=== PATIENT | female | born 1935 | race American Indian/Alaskan Native ===

== ENCOUNTER 2017-07-17 10:42 | Outpatient (CLI) | payer MEDICARE ==
--- NOTE | 2017-07-17 21:08 | XRay Report ---
FINAL REPORT PROCEDURE: XR KNEE 4+V LT TECHNIQUE: Five view left knee HISTORY: KNEE PAIN COMPARISON: No prior studies are available for comparison. FINDINGS: Severe degenerative changes left knee primarily medial joint space with endplate sclerotic change in osteophytic eburnation. Retropatellar osteophytic change. Prominent osteophytic eburnation or exostoses in the posterior femoral condylar and tibial areas on lateral view. Small suprapatellar effusion. Soft tissue swelling. IMPRESSION: No definite acute fracture
== END 2017-07-17 10:43 | disposition home or self-care (01) ==
LOC: SPVIMAG 10:42
PROVIDERS: ATTEND Orthopaedic Surgery Sports Medicine
DX: M17.12 Unilateral primary osteoarthritis, left knee (principal)

== ENCOUNTER 2017-08-20 13:19 | Emergency (ER) | payer MEDICARE ==
[2017-08-20] MEDS ORDERED: ZOFRAN IV ONE (14:25)
[2017-08-20] MEDS ORDERED: VALIUM IV ONE (14:26)
[2017-08-20] MEDS ORDERED: ANTIVERT PO ONE (14:26)
[2017-08-20] MEDS ORDERED: NACL 0.9% 1000 ML 1,000 ML ONE (14:29)
--- NOTE | 2017-08-20 14:30 | Emergency Department Report ---
<ZENOBIACASE T - Last Filed: 08/20/17 19:19> ED Dizziness HPI - General Chief Complaint: Nausea/Vomiting/Diarrhea Stated Complaint: N/V AND DIZZINESS Time Seen by Provider: 08/20/17 14:20 - Related Data Previous Rx's Medication Instructions Recorded Last Taken Type Meclizine [Antivert] 25 mg PO TID PRN #30 tablet 08/20/17 Unknown Rx Ondansetron [Zofran Odt] 4 mg PO Q8HR PRN #14 tab.rapdis 08/20/17 Unknown Rx Allergies Allergy/AdvReac Type Severity Reaction Status Date / Time No Known Allergies Allergy Unverified 08/20/17 14:00 ED Review of Systems ROS: Stated complaint: N/V AND DIZZINESS Other details as noted in HPI ED Past Medical Hx - Medications Home Medications: Home Medications Medication Instructions Recorded Confirmed Last Taken Type Meclizine [Antivert] 25 mg PO TID PRN #30 tablet 08/20/17 Unknown Rx Ondansetron [Zofran Odt] 4 mg PO Q8HR PRN #14 tab.rapdis 08/20/17 Unknown Rx ED Course Vital Signs 08/20/17 08/20/17 08/20/17 14:18 14:30 14:45 Temperature Pulse Rate 65 62 Respiratory 16 15 Rate Blood Pressure 136/78 133/74 Blood Pressure [Right] O2 Sat by Pulse 100 100 97 Oximetry 08/20/17 08/20/17 08/20/17 15:00 15:27 15:30 Temperature Pulse Rate 61 Respiratory 16 Rate Blood Pressure 130/72 130/72 125/68 Blood Pressure [Right] O2 Sat by Pulse 95 99 97 Oximetry 08/20/17 08/20/17 08/20/17 15:34 15:45 16:00 Temperature 98.7 F Pulse Rate 68 Respiratory 18 Rate Blood Pressure 122/71 135/75 Blood Pressure 125/68 [Right] O2 Sat by Pulse 99 99 Oximetry 08/20/17 16:15 Temperature Pulse Rate Respiratory Rate Blood Pressure 126/75 Blood Pressure [Right] O2 Sat by Pulse 100 Oximetry ED Medical Decision Making - Lab Data Result diagrams: 08/20/17 15:50 08/20/17 15:50 Critical care attestation.: If time is entered above; I have spent that time in minutes in the direct care of this critically ill patient, excluding procedure time. ED Disposition Clinical Impression: Dizziness, Vertigo Disposition: DC-01 TO HOME OR SELFCARE Is pt being admited?: No Does the pt Need Aspirin: No Condition: Stable Instructions: Vertigo (ED) Prescriptions: Meclizine [Antivert] 25 mg PO TID PRN #30 tablet PRN Reason: Vertigo Ondansetron [Zofran Odt] 4 mg PO Q8HR PRN #14 tab.rapdis PRN Reason: Nausea And Vomiting Referrals: PRIMARY CARE,MD [Primary Care Provider] - 3-5 Days Time of Disposition: 19:20 <BRENT REYNOLDS - Last Filed: 08/23/17 16:16> ED Dizziness HPI - General Source: patient, EMS Mode of arrival: Stretcher Limitations: No Limitations - History of Present Illness Initial Comments: Patient is 81 years old female, history of vertigo a few years back, presented today with dizziness ,nausea ,vomiting started all of a sudden after she finished her breakfast this morning. Patient denied any headache, numbness or tingling sensation, no weakness. No bowel or bladder incontinence. Patient also denied chest pain or shortness of breath. MD Complaint: dizziness -: Sudden Timing: sudden onset Description: "room spinning", nausea History of Same: Yes History of Trauma: No Severity: moderate Improves With: remaining still Worsens With: movement, position Associated Symptoms: denies: ataxia, chest pain, confusion, cough, diaphoresis, fever/chills, loss of appetite, malaise, rash, seizure, shortness of breath, syncope, weakness ED Review of Systems Comment: All other systems reviewed and negative Constitutional: denies: chills, fever ENT: denies: throat pain Respiratory: denies: cough, orthopnea, shortness of breath, SOB with exertion Cardiovascular: denies: chest pain, palpitations, dyspnea on exertion, edema Endocrine: denies: excessive sweating, flushing, intolerance to cold, increased hunger, increased thirst, increased urine, unexplained weight gain Gastrointestinal: nausea, vomiting. denies: abdominal pain, diarrhea, constipation, hematemesis, melena, hematochezia Genitourinary: denies: urgency, dysuria, frequency, hematuria Musculoskeletal: denies: back pain, joint swelling Skin: denies: rash, lesions, change in color Neurological: vertigo. denies: headache, weakness, numbness, paresthesias, confusion, abnormal gait ED Past Medical Hx - Past Medical History Previous Medical History?: Yes Hx Hypertension: Yes - Surgical History Past Surgical History?: Yes Additional Surgical History: Right Knee Replacement - Social History Smoking Status: Never Smoker Substance Use Type: None ED Physical Exam - General Limitations: No Limitations General appearance: alert, in no apparent distress, other (actively vomiting) - Head Head exam: Present: atraumatic, normocephalic, normal inspection - Eye Eye exam: Present: normal appearance, PERRL Pupils: Present: normal accommodation - ENT ENT exam: Present: normal exam, normal orophraynx, mucous membranes moist - Neck Neck exam: Present: normal inspection, full ROM. Absent: tenderness, meningismus, lymphadenopathy - Respiratory Respiratory exam: Present: normal lung sounds bilaterally. Absent: respiratory distress, wheezes, rales, rhonchi, stridor, chest wall tenderness, accessory muscle use, decreased breath sounds, prolonged expiratory - Cardiovascular Cardiovascular Exam: Present: regular rate, normal rhythm, normal heart sounds - GI/Abdominal GI/Abdominal exam: Present: soft, normal bowel sounds. Absent: distended, tenderness, guarding, rebound, rigid, organomegaly, mass, bruit, pulsatile mass , hernia - Extremities Exam Extremities exam: Present: normal inspection, full ROM, normal capillary refill - Back Exam Back exam: Present: normal inspection, full ROM. Absent: tenderness, CVA tenderness (R), CVA tenderness (L), muscle spasm, paraspinal tenderness, vertebral tenderness - Neurological Exam Neurological exam: Present: alert, oriented X3, CN II-XII intact, normal gait, reflexes normal. Absent: motor sensory deficit - Skin Skin exam: Present: warm, intact, normal color ED Course Vital Signs 08/20/17 08/20/17 08/20/17 14:18 14:30 14:45 Temperature Pulse Rate 65 62 Respiratory 16 15 Rate Blood Pressure 136/78 133/74 Blood Pressure [Right] O2 Sat by Pulse 100 100 97 Oximetry 08/20/17 08/20/17 08/20/17 15:00 15:27 15:30 Temperature Pulse Rate 61 Respiratory 16 Rate Blood Pressure 130/72 130/72 125/68 Blood Pressure [Right] O2 Sat by Pulse 95 99 97 Oximetry 08/20/17 08/20/17 08/20/17 15:34 15:45 16:00 Temperature 98.7 F Pulse Rate 68 Respiratory 18 Rate Blood Pressure 122/71 135/75 Blood Pressure 125/68 [Right] O2 Sat by Pulse 99 99 Oximetry 08/20/17 16:15 Temperature Pulse Rate Respiratory Rate Blood Pressure 126/75 Blood Pressure [Right] O2 Sat by Pulse 100 Oximetry ED Medical Decision Making - Lab Data Result diagrams: 08/20/17 15:50 08/20/17 15:50 ED Disposition Is pt being admited?: No
[2017-08-20] MEDS ORDERED: VALIUM PO ONE (15:00)
[2017-08-20 16:24] VITALS: BP 126/75
--- NOTE | 2017-08-20 16:28 | Cat Scan Report ---
FINAL REPORT PROCEDURE: CT HEAD/BRAIN WO CON TECHNIQUE: Computerized tomography of the head was performed without contrast material. HISTORY: DIZZINESS COMPARISON: No prior studies are available for comparison. FINDINGS: Brain: There is no evidence of intracranial hemorrhage. No parenchymal hemorrhage is seen. No mass lesions or mass effect is identified. No abnormal extra-axial fluid collections or masses are seen. Ventricles: The ventricles, sulcal pattern and fissures are prominent consistent with atrophy. Bones: No evidence of acute fracture. Paranasal sinuses: Air-fluid level partially visualized in the left maxillary sinus suggesting acute sinusitis. The entire maxillary sinuses not included on this exam. Visualized portions of the paranasal sinuses otherwise appear clear. Mastoid air cells: clear IMPRESSION: No acute intracranial abnormalities are identified. There is evidence of mild atrophy. Air-fluid level left maxillary sinus partially visualized suggesting acute sinusitis. No other abnormalities are identified.
[2017-08-20 16:30] LABS: Basophils % (Auto) 0.3 % (0.0-1.8); Eosinophils % (Auto) 0.1 % (0.0-4.3); Hematocrit 42.3 % (30.3-42.9); Hemoglobin 13.6 gm/dl (10.1-14.3); Lymphocytes # (Auto) 0.9 K/mm3 (1.2-5.4); Mean Corpuscular HGB Conc 32 % (30-34); Mean Corpuscular Hemoglobin 27 pg (28-32); Mean Corpuscular Volume 82 fl (79-97); Monocytes # (Auto) 0.6 K/mm3 (0.0-0.8); Monocytes % (Auto) 6.8 % (0.0-7.3); Platelet Count 168 K/mm3 (140-440); Red Blood Count 5.14 M/mm3 (3.65-5.03); Red Cell Distribution Width 14.7 % (13.2-15.2)
[2017-08-20 16:52] LABS: Alanine Aminotransferase 13 units/L (7-56); Albumin 3.6 g/dL (3.9-5); BUN/Creatinine Ratio 30; Blood Urea Nitrogen 15 mg/dL (7-17); Calcium 8.5 mg/dL (8.4-10.2); Hemolysis Index 22; Lipase 56 units/L (13-60)
[2017-08-20 18:57] LABS: Bacteria,Urine 3+ /HPF (Negative); Bilirubin,Urine NEG (Negative); Blood,Urine SM (Negative); Color,Urine Yellow (Yellow); Nitrite,Urine NEG (Negative); Protein,Urine <15 mg/dL mg/dL (Negative); Urobilinogen,Urine < 2.0 mg/dL (<2.0)
== END 2017-08-20 20:12 | disposition home or self-care (01) ==
LOC: ED 13:19
DX: R42 Dizziness and giddiness (principal); R11.2 Nausea with vomiting, unspecified; R19.7 Diarrhea, unspecified; I10 Essential (primary) hypertension; Z96.651 Presence of right artificial knee joint
CPT/HCPCS: 36415; 70450; 80053; 81001; 83690; 84484; 85025; 93005; 93010; 96374; 99284; J2405; J7030

== ENCOUNTER 2017-08-30 11:44 | Emergency (ER) | payer MEDICARE ==
[2017-08-30] MEDS ORDERED: TORADOL IV ONE (13:25)
[2017-08-30] MEDS ORDERED: VALIUM IV ONE (13:33)
[2017-08-30 13:50] LABS: Basophils # (Auto) 0.1 K/mm3 (0.0-0.1); Basophils % (Auto) 0.6 % (0.0-1.8); Eosinophils # (Auto) 0.1 K/mm3 (0.0-0.4); Eosinophils % (Auto) 1.1 % (0.0-4.3); Hematocrit 45.2 % (30.3-42.9); Hemoglobin 14.3 gm/dl (10.1-14.3); Lymphocytes # (Auto) 2.7 K/mm3 (1.2-5.4); Lymphocytes % (Auto) 33.1 % (13.4-35.0); Mean Corpuscular HGB Conc 32 % (30-34); Mean Corpuscular Volume 81 fl (79-97); Monocytes # (Auto) 0.9 K/mm3 (0.0-0.8); Monocytes % (Auto) 11.6 % (0.0-7.3); Platelet Count 183 K/mm3 (140-440); Red Blood Count 5.58 M/mm3 (3.65-5.03); Red Cell Distribution Width 14.3 % (13.2-15.2)
[2017-08-30 13:51] LABS: Mean Corpuscular Hemoglobin 26 pg (28-32)
[2017-08-30 13:58] LABS: BUN/Creatinine Ratio 28; Blood Urea Nitrogen 14 mg/dL (7-17); Calcium 8.9 mg/dL (8.4-10.2); Hemolysis Index 908
--- NOTE | 2017-08-30 14:10 | Emergency Department Report ---
ED Dizziness HPI - General Chief Complaint: Neck Pain/Injury Stated Complaint: NECK PAIN, VERTIGO Time Seen by Provider: 08/30/17 13:11 Source: patient, old records reviewed Mode of arrival: Ambulatory Limitations: No Limitations - History of Present Illness Initial Comments: 82 year old female with a past medical history hypertension and vertigo presents to the hospital complaining of vertigo and neck pain. Patient was seen here on the 10th for vertiginous symptoms. She complained of dizziness/ from spinning when turning her head from side to side or getting up. Positive so she nausea vomiting and symptom onset. Patient had a CT head (positive for left maxillary sinusitis) was started on meclizine and Zofran with some improvement. Patient states she has not required Zofran. There is some decrease in the dizziness with meclizine but this dizziness episode as persisting longer than usual. Patient has been having vertigo intermittently for the last 2 years. She also complains of ringing in each ear for greater than 1 year. Patient complain of pain to the back of her neck which increases with lying on her left side. Pain described as aching and uncomfortable moderate in intensity. Worse with movement. Improves with holding the neck with her hands. No trauma reported. No slurred speech, focal weakness or numbness reported. - Related Data Previous Rx's Medication Instructions Recorded Last Taken Type Ondansetron [Zofran Odt] 4 mg PO Q8HR PRN #14 tab.rapdis 08/20/17 Unknown Rx Cyclobenzaprine [Flexeril] 10 mg PO TID PRN #30 tablet 08/30/17 Unknown Rx Ibuprofen [Motrin] 600 mg PO Q8H PRN #30 tablet 08/30/17 Unknown Rx Meclizine [Antivert] 25 mg PO TID PRN #30 tablet 08/30/17 Unknown Rx Allergies Allergy/AdvReac Type Severity Reaction Status Date / Time No Known Allergies Allergy Unverified 08/20/17 14:00 ED Review of Systems ROS: Stated complaint: NECK PAIN, VERTIGO Other details as noted in HPI Comment: All other systems reviewed and negative Other: Constitutional: No fevers chills Eyes: No eye pain visual changes ENT: No ear pain or throat pain Neck: As per HPI Respiratory: Denies cough wheezing shortness of breath Cardiovascular: Denies chest pain, palpitations, syncope GI: Denies abdominal pain, nausea, vomiting, diarrhea, : Denies dysuria Musculoskeletal: Denies back pain, joint swelling Skin: Denies rash, lesions, erythema Neurologic: Denies headache, numbness, weakness Psychiatric: Denies suicidal ideation, hallucinations ED Past Medical Hx - Past Medical History Previous Medical History?: Yes Hx Hypertension: Yes Additional medical history: vertigo - Surgical History Past Surgical History?: Yes Additional Surgical History: Right Knee Replacement, Hysterectomy - Social History Smoking Status: Never Smoker Substance Use Type: Alcohol, Prescribed, Other - Medications Home Medications: Home Medications Medication Instructions Recorded Confirmed Last Taken Type Ondansetron [Zofran Odt] 4 mg PO Q8HR PRN #14 tab.rapdis 08/20/17 Unknown Rx Cyclobenzaprine [Flexeril] 10 mg PO TID PRN #30 tablet 08/30/17 Unknown Rx Ibuprofen [Motrin] 600 mg PO Q8H PRN #30 tablet 08/30/17 Unknown Rx Meclizine [Antivert] 25 mg PO TID PRN #30 tablet 08/30/17 Unknown Rx ED Physical Exam - General Limitations: No Limitations - Other Other exam information: General: No limitations, patient is alert in no acute distress Head exam: Atraumatic, normocephalic Eyes exam: Normal appearance, pupils equal reactive to light, extraocular movements intact, no significant nystagmus ENT: Moist mucous membrane, normal oropharynx, TMs normal bilaterally Neck exam: Normal inspection, full range of motion, no meningismus nontender Respiratory exam: Clear to auscultation bilateral, no wheezes, rales, crackles Cardiovascular: Normal rate and rhythm, normal heart sounds Abdomen: Soft, nondistended, and nontender, with normal bowel sounds, no rebound, or guarding Extremity: Full range of motion normal inspection no deformity Back: Normal Inspection, full range of motion, no tenderness Neurologic: Alert, oriented x3, cranial nerves intact, no motor or sensory deficit, [id number] function intact Psychiatric: normal affect, normal mood Skin: Warm, dry, intact ED Course Vital Signs 08/30/17 08/30/17 11:49 17:12 Temperature 98 F 97.8 F Pulse Rate 91 H 65 Respiratory 18 18 Rate Blood Pressure 172/81 Blood Pressure 120/65 [Left] O2 Sat by Pulse 98 99 Oximetry ED Medical Decision Making - Lab Data Result diagrams: 08/30/17 13:26 08/30/17 14:56 Lab Results 08/30/17 08/30/17 08/30/17 Range/Units 13:26 13:26 14:56 WBC 8.1 (4.5-11.0) K/mm3 RBC 5.58 H (3.65-5.03) M/mm3 Hgb 14.3 (10.1-14.3) gm/dl Hct 45.2 H (30.3-42.9) % MCV 81 (79-97) fl MCH 26 L (28-32) pg MCHC 32 (30-34) % RDW 14.3 (13.2-15.2) % Plt Count 183 (140-440) K/mm3 Lymph % (Auto) 33.1 (13.4-35.0) % [place] % (Auto) 11.6 H (0.0-7.3) % Eos % (Auto) 1.1 (0.0-4.3) % Baso % (Auto) 0.6 (0.0-1.8) % Lymph # 2.7 (1.2-5.4) K/mm3 [place] # 0.9 H (0.0-0.8) K/mm3 Eos # 0.1 (0.0-0.4) K/mm3 Baso # 0.1 (0.0-0.1) K/mm3 Seg Neutrophils % 53.6 (40.0-70.0) % Seg Neutrophils # 4.3 (1.8-7.7) K/mm3 Sodium 133 L 138 (137-145) mmol/L Potassium TNR 4.5 Chloride 96.3 L 96.6 L (98-107) mmol/L Carbon Dioxide 27 29 (22-30) mmol/L Anion Gap TNR 17 BUN 14 13 (7-17) mg/dL Creatinine 0.5 L 0.4 L (0.7-1.2) mg/dL Estimated GFR > 60 > 60 ml/min BUN/Creatinine Ratio 28 33 % Glucose 109 H 91 (65-100) mg/dL Calcium 8.9 8.9 (8.4-10.2) mg/dL Magnesium 2.50 H 2.20 (1.7-2.3) mg/dL - Radiology Data Radiology results: report reviewed Read by radiologist CT angiogram head: Unremarkable Chronic left maxillary sinusitis CT Angio neck: Multinodular thyroid goiter. Elected thyroid ultrasound is recommended. Mild chronic left sinusitis Degenerative changes in the cervical spine Unremarkable cervical arteriovascular - Medical Decision Making Dizziness/vertigo Symptoms suggested a peripheral vertigo Previous CT head unremarkable other than left maxillary sinusitis Today's CT angiogram head and neck did not show any acute findings Neck pain No signs of dissection Muscle spasm noted Pain improved with Toradol Patient did not received ordered Valium due to delay from pharmacy and the fact that patient improved with Toradol alone. Incidental finding of thyroid nodules. Follow-up encouraged. Copy CTs provided htn improved with pain relief Plan to Discharge patient home with additional meclizine, Motrin, and Flexeril as needed ENT follow-up encouraged - Differential Diagnosis vertigo, VBI, neck strain, infection, Mnire's Critical Care Time: No Critical care attestation.: If time is entered above; I have spent that time in minutes in the direct care of this critically ill patient, excluding procedure time. ED Disposition Clinical Impression: Vertigo, Neck strain, Multiple thyroid nodules, Chronic sinusitis Disposition: TO HOME OR SELFCARE Is pt being admited?: No Does the pt Need Aspirin: No Condition: Stable Instructions: Vertigo (ED), Cervical Sprain (ED), Thyroid Nodules (ED) Additional Instructions: A CAT scan coincidentally showed multinodular thyroid goiter as well as chronic left maxillary sinusitis. Follow up with both your primary care doctor and the ear nose throat doctor for further evaluation of sinusitis, ear ringing, and vertigo. Take the medication as prescribed. Return if symptoms worsen. Please note that Flexeril may cause drowsiness. Take a copy of the CAT scan reported see a doctor for further management Prescriptions: Cyclobenzaprine [Flexeril] 10 mg PO TID PRN #30 tablet PRN Reason: Muscle Spasm Ibuprofen [Motrin] 600 mg PO Q8H PRN #30 tablet PRN Reason: Pain Meclizine [Antivert] 25 mg PO TID PRN #30 tablet PRN Reason: Vertigo Referrals: PETERSON PETERSON MD [Staff Physician] - 3-5 Days (ENT doctor) HAVEN HARDY MD [Staff Physician] - 3-5 Days (ENT doctor) Time of Disposition: 17:40
--- NOTE | 2017-08-30 15:10 | Cat Scan Report ---
FINAL REPORT PROCEDURE: CT ANGIO HEAD TECHNIQUE: Consent was obtained. IV contrast was administered and axial sections as well as post processed reformatted and maximal intensity projection images were viewed through the head. HISTORY: vertigo, neck pain COMPARISON: None FINDINGS: There is no enhancing intra or extra-axial mass lesion. No leptomeningeal abnormality is seen. The deep venous sinuses and cavernous sinuses enhance normally. Chronic left maxillary sinusitis is present. The remainder of the paranasal sinuses as well as the bilateral mastoid air cells and middle ears are well aerated. Normal enhancement of the vertebral arteries at the skullbase, the basilar and posterior cerebral arteries is seen as well as normal enhancement of the imaged portions of the internal carotid arteries, anterior and middle cerebral arteries and their branches. Mild calcific atherosclerosis is present of the ICAs at the level of the siphon, cavernous sinus and supraclinoid. There is no evident aneurysm, high-grade stenosis or vascular malformation. IMPRESSION: Unremarkable CTA. Chronic left maxillary sinusitis
--- NOTE | 2017-08-30 15:17 | Cat Scan Report ---
FINAL REPORT PROCEDURE: CT ANGIO NECK TECHNIQUE: Consent was obtained. IV contrast was administered and axial sections as well as post processed reformatted and maximal intensity projection images were obtained of the cervical arterial vasculature. HISTORY: vertigo, neck pain COMPARISON: None FINDINGS: Degenerative changes of the cervical spine, degenerative disc disease worst at C5/C6 and C6/C7 is present. There is no CT evident fracture. There is no subluxation. Arch anatomy is normal. Multi nodular thyroid goiter is present. Mild chronic left maxillary sinusitis is identified. Normal enhancement of the cervical vertebral arteries, the right being mildly dominant is seen. Likewise, there is normal enhancement of the common, internal, and external carotid arteries and their branches without significant plaquing, high-grade stenosis or vascular occlusion. There is no pseudoaneurysm or AV fistula. IMPRESSION: Multinodular thyroid goiter. Elective thyroid ultrasound is recommended. Mild chronic left maxillary sinusitis. Degenerative changes of the cervical spine worst at C5/C6 and C6/C7. Unremarkable cervical arterial vasculature.
[2017-08-30] MEDS ORDERED: TORADOL ONE (15:28)
[2017-08-30 16:00] LABS: BUN/Creatinine Ratio 33; Blood Urea Nitrogen 13 mg/dL (7-17); Calcium 8.9 mg/dL (8.4-10.2); Hemolysis Index 74
[2017-08-30] MEDS ORDERED: VALIUM PO ONE (16:00)
[2017-08-30 17:12] VITALS: BP 120/65
== END 2017-08-30 18:22 | disposition home or self-care (01) ==
LOC: ED 11:44
DX: S16.1XXA Strain of muscle, fascia and tendon at neck level, initial encounter (principal); R42 Dizziness and giddiness; J32.8 Other chronic sinusitis; E04.2 Nontoxic multinodular goiter; X50.9XXA Other and unspecified overexertion or strenuous movements or postures, initial encounter; Y93.89 Activity, other specified; Y92.89 Other specified places as the place of occurrence of the external cause; Y99.8 Other external cause status
CPT/HCPCS: 36415; 70496; 70498; 80048; 83735; 85025; 96374; 99284; J1885; Q9967

== ENCOUNTER 2017-09-18 15:54 | Outpatient (CLI) | payer MEDICARE ==
--- NOTE | 2017-09-19 11:16 | Magnetic Resonance Report ---
MRI BRAIN WITHOUT CONTRAST: 09/18/17 15:54:00 CLINICAL: Benign paroxysmal vertigo TECHNIQUE: Axial diffusion, T1, T2, FLAIR, gradient echo T2*, and sagittal T1 sequences on a 1.5 Shandra magnet. FINDINGS: The ventricles and sulci are normal for age. No restricted diffusion. No mass or mass effect. No hemorrhage, edema or extra-axial collection. Normal pituitary and optic chiasm. The brainstem and cerebellum are normal. Intact vascular flow voids. Mucoperiosteal thickening of the left maxillary sinus. The rest of the sinuses are clear. The orbits, and soft tissues are normal. Normal calvarium and skull base. IMPRESSION: Left maxillary sinusitis and otherwise normal exam.
== END 2017-09-18 15:55 | disposition home or self-care (01) ==
LOC: MRI 15:54
PROVIDERS: ATTEND Otolaryngology
DX: H81.13 Benign paroxysmal vertigo, bilateral (principal); J32.0 Chronic maxillary sinusitis
CPT/HCPCS: 70551

== ENCOUNTER 2018-01-17 11:21 | Emergency (ER) | payer MEDICARE ==
[2018-01-17 12:08] LABS: Basophils # (Auto) 0.1 K/mm3 (0.0-0.1); Eosinophils # (Auto) 0.2 K/mm3 (0.0-0.4); Eosinophils % (Auto) 2.4 % (0.0-4.3); Hematocrit 42.1 % (30.3-42.9); Hemoglobin 13.1 gm/dl (10.1-14.3); Lymphocytes # (Auto) 2.8 K/mm3 (1.2-5.4); Lymphocytes % (Auto) 42.5 % (13.4-35.0); Mean Corpuscular HGB Conc 31 % (30-34); Mean Corpuscular Hemoglobin 25 pg (28-32); Mean Corpuscular Volume 81 fl (79-97); Monocytes # (Auto) 0.7 K/mm3 (0.0-0.8); Monocytes % (Auto) 10.9 % (0.0-7.3); Platelet Count 259 K/mm3 (140-440); Red Blood Count 5.18 M/mm3 (3.65-5.03); Red Cell Distribution Width 14.5 % (13.2-15.2)
[2018-01-17 12:33] LABS: Alanine Aminotransferase 7 units/L (7-56); Albumin 3.8 g/dL (3.9-5); BUN/Creatinine Ratio 28; Blood Urea Nitrogen 14 mg/dL (7-17); Calcium 9.3 mg/dL (8.4-10.2); Hemolysis Index 5
--- NOTE | 2018-01-17 13:44 | Emergency Department Report ---
ED General Adult HPI - General Chief complaint: Abdominal Pain Stated complaint: HIGH BP Time Seen by Provider: 01/17/18 12:58 Source: patient Mode of arrival: Ambulatory Limitations: No Limitations - History of Present Illness Initial comments: Patient was told that she had a high blood sugar at a local fire station free examination fair, and comes in because she feels that she needs stabilizing treatment. Patient's past medical history is significant for having resection of the tail of the pancreas and spleen one month ago, at her local hospital in [facility]. She has recovered uneventfully, but her blood sugar has remained high since his surgery, although she had no problems with blood sugar elevations, and had not been previously diagnosed with diabetes. She has moved here recently, does not have a local physician, and is here primarily because she feels that the blood sugar is supposed to be treated when it's high and diabetes, even though she has no symptoms. She has not had any feelings of pain after she recovered from her surgery, nor has she had an problems with nausea or vomiting, and she has been eating normally. She follows no particular diet. Past medical history is significant for idiopathic pancreatic cyst, diagnosed initially in 2009, and was more recently felt to need resection, which was done by open abdominal incision. Patient said that there was no concern about cancer , but that there was a fluid collection, and they felt that it needed to come out. Patient has not had any since weakness or complications since the surgery, has been forming her regular daily activities, has not been excessively thirsty, has not been urinating very frequently, and has not lost any significant weight. She has not felt feverish, lightheaded, and has not passed out. Past medical history significant for intermittent vertigo as well as hypertension, and she is prior knee replacement on the right side, as well as a prior hysterectomy, but otherwise has been in good health. She has been told she has a heart murmur, which is not had any cardiac history otherwise, no myocardial infarctions, no heart failure, and no symptoms of shortness of breath or dyspnea on exertion. Severity scale (0 -10): 0 - Related Data Previous Rx's Medication Instructions Recorded Last Taken Type Ondansetron [Zofran Odt] 4 mg PO Q8HR PRN #14 tab.rapdis 08/20/17 Unknown Rx Cyclobenzaprine [Flexeril] 10 mg PO TID PRN #30 tablet 08/30/17 Unknown Rx Ibuprofen [Motrin] 600 mg PO Q8H PRN #30 tablet 08/30/17 Unknown Rx Meclizine [Antivert] 25 mg PO TID PRN #30 tablet 08/30/17 Unknown Rx Blood Sugar Diagnostic [Test 1 each MC DAILY #30 strip 01/17/18 Unknown Rx Strips] Allergies Allergy/AdvReac Type Severity Reaction Status Date / Time No Known Allergies Allergy Unverified 08/20/17 14:00 ED Review of Systems ROS: Stated complaint: HIGH BP Other details as noted in HPI Comment: All other systems reviewed and negative Constitutional: denies: chills, fever ENT: denies: ear pain, throat pain Respiratory: denies: cough, shortness of breath, wheezing Cardiovascular: denies: chest pain, palpitations Endocrine: no symptoms reported Gastrointestinal: as per HPI Genitourinary: denies: urgency, dysuria, discharge Musculoskeletal: denies: back pain, joint swelling, arthralgia Skin: denies: rash, lesions Neurological: denies: headache, weakness, paresthesias Psychiatric: denies: anxiety, depression Hematological/Lymphatic: denies: easy bleeding, easy bruising ED Past Medical Hx - Past Medical History Hx Hypertension: Yes Additional medical history: vertigo - Surgical History Additional Surgical History: Right Knee Replacement, Hysterectomy,, status post resection tail of pancreas and splenectomy, secondary to pancreatic cyst - Social History Smoking Status: Never Smoker Substance Use Type: None - Medications Home Medications: Home Medications Medication Instructions Recorded Confirmed Last Taken Type Ondansetron [Zofran Odt] 4 mg PO Q8HR PRN #14 tab.rapdis 08/20/17 Unknown Rx Cyclobenzaprine [Flexeril] 10 mg PO TID PRN #30 tablet 08/30/17 Unknown Rx Ibuprofen [Motrin] 600 mg PO Q8H PRN #30 tablet 08/30/17 Unknown Rx Meclizine [Antivert] 25 mg PO TID PRN #30 tablet 08/30/17 Unknown Rx Blood Sugar Diagnostic [Test 1 each MC DAILY #30 strip 01/17/18 Unknown Rx Strips] ED Physical Exam - General Limitations: No Limitations General appearance: alert, in no apparent distress - Head Head exam: Present: atraumatic, normocephalic - Eye Eye exam: Present: normal appearance - ENT ENT exam: Present: mucous membranes moist - Neck Neck exam: Present: normal inspection - Respiratory Respiratory exam: Present: normal lung sounds bilaterally. Absent: respiratory distress - Cardiovascular Cardiovascular Exam: Present: regular rate, systolic murmur (2/6,), other ( heart a slightly hyperdynamic) - GI/Abdominal GI/Abdominal exam: Present: soft, normal bowel sounds, other (well-healed left upper quadrant abdominal scar). Absent: tenderness, guarding, rebound - Rectal Rectal exam: Present: deferred - Extremities Exam Extremities exam: Present: normal inspection, full ROM - Back Exam Back exam: Present: normal inspection - Neurological Exam Neurological exam: Present: alert, oriented X3, CN II-XII intact. Absent: motor sensory deficit - Psychiatric Psychiatric exam: Present: normal affect, normal mood - Skin Skin exam: Present: warm, dry ED Course Vital Signs 01/17/18 11:25 Temperature 36.7 C Pulse Rate 79 Blood Pressure 144/83 ED Medical Decision Making - Lab Data Result diagrams: 01/17/18 11:45 01/17/18 11:45 - Medical Decision Making This patient is hyperglycemic, but she is also status post partial pancreatectomy as well as splenectomy, and has residual hyperglycemic, but she is not acidotic. She does not need acute insulin treatment today, and she can be managed in an outpatient office setting, and will be advised to follow her sugars, decreased carbohydrates in her diet for the time being, and to observe for secondary symptoms such as weight loss, increased thirst, increased urination, or general sense of malaise. Critical Care Time: No Critical care attestation.: If time is entered above; I have spent that time in minutes in the direct care of this critically ill patient, excluding procedure time. ED Disposition Clinical Impression: Hyperglycemia without ketosis Disposition: DC-01 TO HOME OR SELFCARE Is pt being admited?: No Does the pt Need Aspirin: No Condition: Stable Instructions: Abdominal Pain (ED) Additional Instructions: we recommend limiting the carbohydrates in your diet while your blood sugar is high. In particular, you should eliminate all foods made of simple sugars, such as soft drinks or sweetened teas, bread, desserts, rice and potatoes. Beans and leafy green vegetables are healthy and may be eaten as much as you like. Proteins are safe, but we recommend limiting the amount of red meat protein that she eat to one or perhaps 2 servings per day. Chicken or fish or plant- based proteins should make up the remainder the protein portion of her diet You can also supplement with extra fat diet, and we recommend focused on vegetable based fats, but animal based fats can also be used safely and a spur in amount and a healthy based diet. He can probably manage very well if your sugar drops below 200 on routine testing, and we recommend that you check your sugars at the same time of day, several times per week, and keep a log record of this, and discuss your trends of glucose levels with your doctor when you make an appointment. Blood sugars are running consistently over 200-250 would be cause for concern and check, and if this remains consistently elevated, he will likely need additional medical treatment for control of diabetes. If you have additional symptoms, in particular feeling weak, lightheaded, dehydrated, or pass out, return to the emergency department for repeat examination. Prescriptions: Blood Sugar Diagnostic [Test Strips] 1 each DAILY #30 strip Referrals: PRIMARY MD RENUKA [Primary Care Provider] - 3-5 Days MEGAN ANDRADE MD [Staff Physician] - 3-5 Days Time of Disposition: 13:49
[2018-01-17 14:43] VITALS: BP 140/82
== END 2018-01-17 14:20 | disposition home or self-care (01) ==
LOC: ED 11:21
DX: R73.9 Hyperglycemia, unspecified (principal); I10 Essential (primary) hypertension; Z90.710 Acquired absence of both cervix and uterus; Z96.651 Presence of right artificial knee joint
CPT/HCPCS: 36415; 80053; 82962; 85025; 99283

== ENCOUNTER 2018-11-20 09:21 | Emergency (ER) | payer MEDICARE ==
[2018-11-20] MEDS ORDERED: IBUPROFEN PO ONE ×2 (09:34→09:35)
[2018-11-20] MEDS ORDERED: NACL 0.9% 1000 ML IV ONE (09:41)
[2018-11-20] MEDS ORDERED: TESSALON PERLES PO ONE (10:12)
[2018-11-20] MEDS ORDERED: ROCEPHIN/NS 1 GM/50 ML 1 GM/50 ML BAG IV ONE (10:13)
[2018-11-20 10:20] LABS: Basophils # (Auto) 0.1 K/mm3 (0.0-0.1); Basophils % (Auto) 0.7 % (0.0-1.8); Eosinophils # (Auto) 0.1 K/mm3 (0.0-0.4); Eosinophils % (Auto) 0.7 % (0.0-4.3); Hemoglobin 13.2 gm/dl (10.1-14.3); Lymphocytes # (Auto) 1.5 K/mm3 (1.2-5.4); Lymphocytes % (Auto) 12.7 % (13.4-35.0); Mean Corpuscular HGB Conc 33 % (30-34); Mean Corpuscular Volume 81 fl (79-97); Monocytes # (Auto) 1.5 K/mm3 (0.0-0.8); Monocytes % (Auto) 12.6 % (0.0-7.3); Platelet Count 242 K/mm3 (140-440); Red Blood Count 4.94 M/mm3 (3.65-5.03); Red Cell Distribution Width 14.6 % (13.2-15.2)
[2018-11-20 10:58] LABS: Alanine Aminotransferase 12 units/L (7-56); Albumin 3.9 g/dL (3.9-5); BUN/Creatinine Ratio 28; Blood Urea Nitrogen 14 mg/dL (7-17); Calcium 8.6 mg/dL (8.4-10.2); Hemolysis Index 5
--- NOTE | 2018-11-20 10:58 | XRay Report ---
ROUTINE CHEST, TWO VIEWS: HISTORY: Short of breath, cough, fever. Compared to 02/25/18. The trachea, heart, mediastinal contour, lung go and bony thorax are unremarkable. IMPRESSION: Unremarkable chest x-ray.
--- NOTE | 2018-11-20 11:56 | Emergency Department Report ---
- General Chief Complaint: Upper Respiratory Infection Stated Complaint: TEMP/COUGHING/WHEEZING Time Seen by Provider: 11/20/18 09:41 Source: patient Mode of arrival: Ambulatory Limitations: No Limitations - History of Present Illness Initial Comments: 83-year-old female with a past medical history of diabetes, hypertension, and vertigo presents to the hospital with complaints of cough and fever since yesterday. Cough is occasionally productive white sputum. Intermittent whee zing reported. Patient did not receive a flu shot this evening, denies previous sick contacts, or recent travel history. No significant pain reported. Patient currently has a Holter monitor. She states she has worn it for the past 6 days due to syncope and is scheduled to wear for [address] Billy Shen, cards: she does not recall the group name - Related Data Home Medications Medication Instructions Recorded Confirmed Last Taken RX: Losartan Potassium [Cozaar] 50 mg PO DAILY 02/04/18 02/25/18 02/04/18 Previous Rx's Medication Instructions Recorded Last Taken Type RX: Acetaminophen [Acetaminophen 650 mg PO Q4H PRN #30 tablet 03/02/18 Unknown Rx TAB] RX: Potassium Chloride [K-Dur] 10 meq PO BID #14 tablet 03/02/18 Unknown Rx ALBUTEROL Inhaler(NF) [VENTOLIN 2 puff IH Q4HRT PRN #1 inha 11/20/18 Unknown Rx Inhaler(NF)] Inhaler, Assist Devices [Space 1 each MC PRN PRN #1 spacer 11/20/18 Unknown Rx Chamber Plus] Prednisone [predniSONE 10 mg 10 mg PO .TAPER #1 tab.ds.pk 11/20/18 Unknown Rx (6-Day Pack, 21 Tabs)] RX: Azithromycin [Zithromax Z-ROSA] 1 dose PO DAILY 5 Days tab 11/20/18 Unknown Rx guaiFENesin/DEXTROMETHORPHAN 1 tab PO BID PRN #20 tab 11/20/18 Unknown Rx [Mucinex DM ER 600-30 mg TAB] Allergies Allergy/AdvReac Type Severity Reaction Status Date / Time No Known Allergies Allergy Verified 11/20/18 09:21 ED Review of Systems ROS: Stated complaint: TEMP/COUGHING/WHEEZING Other details as noted in HPI Comment: All other systems reviewed and negative ED Past Medical Hx - Past Medical History Previous Medical History?: Yes Hx Hypertension: Yes (on losartan) Hx Diabetes: Yes Hx Renal Disease: No Additional medical history: vertigo - Surgical History Past Surgical History?: Yes Additional Surgical History: Right Knee Replacement, Hysterectomy,, status post resection tail of pancreas and splenectomy, secondary to pancreatic cyst - Social History Smoking Status: Never Smoker Substance Use Type: None - Medications Home Medications: Home Medications Medication Instructions Recorded Confirmed Last Taken Type RX: Losartan Potassium [Cozaar] 50 mg PO DAILY 02/04/18 02/25/18 02/04/18 History RX: Acetaminophen [Acetaminophen 650 mg PO Q4H PRN #30 tablet 03/02/18 Unknown Rx TAB] RX: Potassium Chloride [K-Dur] 10 meq PO BID #14 tablet 03/02/18 Unknown Rx ALBUTEROL Inhaler(NF) [VENTOLIN 2 puff IH Q4HRT PRN #1 inha 11/20/18 Unknown Rx Inhaler(NF)] Inhaler, Assist Devices [Space 1 each MC PRN PRN #1 spacer 11/20/18 Unknown Rx Chamber Plus] Prednisone [predniSONE 10 mg 10 mg PO .TAPER #1 tab.ds.pk 11/20/18 Unknown Rx (6-Day Pack, 21 Tabs)] RX: Azithromycin [Zithromax Z-ROSA] 1 dose PO DAILY 5 Days tab 11/20/18 Unknown Rx guaiFENesin/DEXTROMETHORPHAN 1 tab PO BID PRN #20 tab 11/20/18 Unknown Rx [Mucinex DM ER 600-30 mg TAB] ED Physical Exam - General Limitations: No Limitations - Other Other exam information: General: No limitations, patient is alert in no acute distress Head exam: Atraumatic, normocephalic Eyes exam: Normal appearance, pupils equal reactive to light, extraocular movements intact ENT: Moist mucous membrane, normal oropharynx Neck exam: Normal inspection, full range of motion, no meningismus nontender Respiratory exam: Clear to auscultation bilateral, no wheezes, rales, crackles Cardiovascular: Mild tachycardia, positive systolic murmur, patient wearing a Holter monitor Abdomen: Soft, nondistended, and nontender, with normal bowel sounds, no rebound, or guarding Extremity: Full range of motion normal inspection no deformity Back: Normal Inspection, full range of motion, no tenderness Neurologic: Alert, oriented x3, cranial nerves intact, no motor or sensory deficit Psychiatric: normal affect, normal mood Skin: Warm, dry, intact ED Course Vital Signs 11/20/18 11/20/18 11/20/18 09:28 10:02 11:01 Temperature 100.7 F H Pulse Rate 108 H 92 H Respiratory 20 16 Rate Blood Pressure 137/85 Blood Pressure [Right] O2 Sat by Pulse 98 97 96 Oximetry 11/20/18 11/20/18 12:01 12:30 Temperature 99.0 F Pulse Rate 84 Respiratory 16 Rate Blood Pressure Blood Pressure 109/67 [Right] O2 Sat by Pulse 97 100 Oximetry ED Medical Decision Making - Lab Data Result diagrams: 11/20/18 09:50 11/20/18 10:25 Lab Results 11/20/18 11/20/18 11/20/18 Range/Units 09:50 09:50 09:50 WBC 11.8 H (4.5-11.0) K/mm3 RBC 4.94 (3.65-5.03) M/mm3 Hgb 13.2 (10.1-14.3) gm/dl Hct 40.0 (30.3-42.9) % MCV 81 (79-97) fl MCH 27 L (28-32) pg MCHC 33 (30-34) % RDW 14.6 (13.2-15.2) % Plt Count 242 (140-440) K/mm3 Lymph % (Auto) 12.7 L (13.4-35.0) % [place] % (Auto) 12.6 H (0.0-7.3) % Eos % (Auto) 0.7 (0.0-4.3) % Baso % (Auto) 0.7 (0.0-1.8) % Lymph # 1.5 (1.2-5.4) K/mm3 [place] # 1.5 H (0.0-0.8) K/mm3 Eos # 0.1 (0.0-0.4) K/mm3 Baso # 0.1 (0.0-0.1) K/mm3 Seg Neutrophils % 73.3 H (40.0-70.0) % Seg Neutrophils # 8.7 H (1.8-7.7) K/mm3 VBG pH 7.452 H (7.320-7.420) Sodium (137-145) mmol/L Potassium (3.6-5.0) mmol/L Chloride (98-107) mmol/L Carbon Dioxide (22-30) mmol/L Anion Gap mmol/L BUN (7-17) mg/dL Creatinine (0.7-1.2) mg/dL Estimated GFR ml/min BUN/Creatinine Ratio % Glucose (65-100) mg/dL Lactic Acid 2.20 H* (0.7-2.0) mmol/L Calcium (8.4-10.2) mg/dL Magnesium (1.7-2.3) mg/dL Total Bilirubin (0.1-1.2) mg/dL AST (5-40) units/L ALT (7-56) units/L Alkaline Phosphatase (35-129) units/L Total Protein (6.3-8.2) g/dL Albumin (3.9-5) g/dL Albumin/Globulin Ratio % Influenza A (Rapid) (Negative) Influenza B (Rapid) (Negative) 11/20/18 11/20/18 11/20/18 Range/Units 10:25 10:25 10:37 WBC (4.5-11.0) K/mm3 RBC (3.65-5.03) M/mm3 Hgb (10.1-14.3) gm/dl Hct (30.3-42.9) % MCV (79-97) fl MCH (28-32) pg MCHC (30-34) % RDW (13.2-15.2) % Plt Count (140-440) K/mm3 Lymph % (Auto) (13.4-35.0) % [place] % (Auto) (0.0-7.3) % Eos % (Auto) (0.0-4.3) % Baso % (Auto) (0.0-1.8) % Lymph # (1.2-5.4) K/mm3 [place] # (0.0-0.8) K/mm3 Eos # (0.0-0.4) K/mm3 Baso # (0.0-0.1) K/mm3 Seg Neutrophils % (40.0-70.0) % Seg Neutrophils # (1.8-7.7) K/mm3 VBG pH (7.320-7.420) Sodium 137 (137-145) mmol/L Potassium 3.9 (3.6-5.0) mmol/L Chloride 97.3 L (98-107) mmol/L Carbon Dioxide 27 (22-30) mmol/L Anion Gap 17 mmol/L BUN 14 (7-17) mg/dL Creatinine 0.5 L (0.7-1.2) mg/dL Estimated GFR > 60 ml/min BUN/Creatinine Ratio 28 % Glucose 189 H (65-100) mg/dL Lactic Acid 2.00 (0.7-2.0) mmol/L Calcium 8.6 (8.4-10.2) mg/dL Magnesium 1.80 (1.7-2.3) mg/dL Total Bilirubin 0.50 (0.1-1.2) mg/dL AST 15 (5-40) units/L ALT 12 (7-56) units/L Alkaline Phosphatase 98 (35-129) units/L Total Protein 7.7 (6.3-8.2) g/dL Albumin 3.9 (3.9-5) g/dL Albumin/Globulin Ratio 1.0 % Influenza A (Rapid) (Negative) Influenza B (Rapid) (Negative) 11/20/18 Range/Units Unknown WBC (4.5-11.0) K/mm3 RBC (3.65-5.03) M/mm3 Hgb (10.1-14.3) gm/dl Hct (30.3-42.9) % MCV (79-97) fl MCH (28-32) pg MCHC (30-34) % RDW (13.2-15.2) % Plt Count (140-440) K/mm3 Lymph % (Auto) (13.4-35.0) % [place] % (Auto) (0.0-7.3) % Eos % (Auto) (0.0-4.3) % Baso % (Auto) (0.0-1.8) % Lymph # (1.2-5.4) K/mm3 [place] # (0.0-0.8) K/mm3 Eos # (0.0-0.4) K/mm3 Baso # (0.0-0.1) K/mm3 Seg Neutrophils % (40.0-70.0) % Seg Neutrophils # (1.8-7.7) K/mm3 VBG pH (7.320-7.420) Sodium (137-145) mmol/L Potassium (3.6-5.0) mmol/L Chloride (98-107) mmol/L Carbon Dioxide (22-30) mmol/L Anion Gap mmol/L BUN (7-17) mg/dL Creatinine (0.7-1.2) mg/dL Estimated GFR ml/min BUN/Creatinine Ratio % Glucose (65-100) mg/dL Lactic Acid (0.7-2.0) mmol/L Calcium (8.4-10.2) mg/dL Magnesium (1.7-2.3) mg/dL Total Bilirubin (0.1-1.2) mg/dL AST (5-40) units/L ALT (7-56) units/L Alkaline Phosphatase (35-129) units/L Total Protein (6.3-8.2) g/dL Albumin (3.9-5) g/dL Albumin/Globulin Ratio % Influenza A (Rapid) Negative (Negative) Influenza B (Rapid) Negative (Negative) - EKG Data -: EKG Interpreted by [facility] EKG shows normal: sinus rhythm, axis (qrs 56), QRS complexes (qrsd 81), ST-T waves (no stemi) Rate: normal (85) - Radiology Data Radiology results: report reviewed ROUTINE CHEST, TWO VIEWS: HISTORY: Short of breath, cough, fever. Compared to 02/25/18. The trachea, heart, mediastinal contour, lung go and bony thorax are unremarkable. IMPRESSION: Unremarkable chest x-ray. - Medical Decision Making Patient has no signs of septic shock and is stable. Patient is better after ED treatment and received 1 dose of IV Rocephin for respiratory infection. Will be discharged home with meds for acute bronchitis. - Differential Diagnosis pneumomia, bronchitis, URI, influenza Critical Care Time: No Critical care attestation.: If time is entered above; I have spent that time in minutes in the direct care of this critically ill patient, excluding procedure time. ED Disposition Clinical Impression: Acute bronchitis Disposition: OP ADMIT IP TO THIS HOSP Is pt being admited?: No Does the pt Need Aspirin: No Condition: Stable Instructions: Acute Bronchitis (ED) Additional Instructions: Take the medication as prescribed. Follow up with your doctor or the cli renita/doctor provided. Return if symptoms worsen as indicated by your discharge instructions Prescriptions: guaiFENesin/DEXTROMETHORPHAN [Mucinex DM ER 600-30 mg TAB] 1 tab PO BID PRN #20 tab PRN Reason: Croup Prednisone [predniSONE 10 mg (6-Day Pack, 21 Tabs)] 10 mg PO .TAPER #1 tab.ds.pk Inhaler, Assist Devices [Space Chamber Plus] 1 each MC PRN PRN #1 spacer PRN Reason: Wheezing ALBUTEROL Inhaler(NF) [VENTOLIN Inhaler(NF)] 2 puff IH Q4HRT PRN #1 inha PRN Reason: Wheezing RX: Azithromycin [Zithromax Z-ROSA] 1 dose PO DAILY 5 Days tab Referrals: EDITH SHEN MD [Primary Care Provider] - 3-5 Days Time of Disposition: 12:58
[2018-11-20 12:45] VITALS: BP 109/67
== END 2018-11-20 14:06 | disposition admitted as inpatient to this hospital (09) ==
LOC: ED 09:21
DX: J04.0 Acute laryngitis (principal)
CPT/HCPCS: 36415; 71046; 80053; 82140; 82805; 83735; 85025; 87040; 87400; 93005; 93010; 96365; 99284; J0696; J7030

== ENCOUNTER 2019-02-17 09:53 | Outpatient (CLI) | payer MEDICARE ==
--- NOTE | 2019-02-17 12:59 | Mammography Report ---
BILATERAL DIGITAL SCREENING MAMMOGRAM WITH CAD INDICATION: Routine screening mammography. TECHNIQUE: Digital bilateral 2D mammography was obtained in the craniocaudal and mediolateral obliq ue projections. This examination was interpreted with the benefit of Computer-Aided Detection analysi s. COMPARISON: None. The patient is uncertain as to where she previously had a mammogram. FINDINGS: Breast Density: The breasts are heterogeneously dense, which may obscure small masses. There is no evidence of dominant mass, suspicious calcifications or architectural distortion in eith er breast. IMPRESSION: BI-RADS Category 1: Negative. No mammographic evidence of malignancy. Recommend routine screening m ammography in one year. A "normal" or negative report should not discourage follow up or biopsy of a clinically significant f inding. A written summary of these findings will be mailed to the patient. The patient will be entered into a mammography reporting system which will generate a reminder letter for the patient's next appointmen t at the appropriate interval. The [employer] recommends yearly mammograms starting at age 40 and continuing as l francesco as a woman is in good health. Breast MRI is recommended for women with an approximate 20-25% or greater lifetime risk of breast cancer, including women with a strong family history of breast or ova reynold cancer or who have been treated for Hodgkin's disease. Signer Name: Robel Diggs MD Signed: 02/17/2019 12:54 PM Workstation Name: [id number]
== END 2019-02-17 09:54 | disposition home or self-care (01) ==
LOC: MAMMO 09:53
PROVIDERS: ATTEND Internal Medicine
DX: Z12.31 Encounter for screening mammogram for malignant neoplasm of breast (principal); I10 Essential (primary) hypertension; E11.9 Type 2 diabetes mellitus without complications; Z90.710 Acquired absence of both cervix and uterus
CPT/HCPCS: 77067

== ENCOUNTER 2019-03-25 11:22 | Outpatient (CLI) | payer MEDICARE ==
--- NOTE | 2019-03-25 14:56 | Ultrasound Report ---
ULTRASOUND THYROID INDICATION / CLINICAL INFORMATION: R94.6 ABNORMAL FINDINGS ON THRYOID FUNCTION TEST. COMPARISON: None available. FINDINGS: RIGHT LOBE: Size = 5.7 x 5.3 x 2.4 cm. - Echogenicity: Heterogeneous - Vascularity: Normal. - Nodules < 1 cm: 1 - Nodules >= 1 cm or Suspicious Nodules: 2 - NODULE # 1 -- Location: right lower -- Size: 2.2 x 1.6 x 1.9 cm -- Composition: Solid = 2 points -- Echogenicity: Hyperechoic or Isoechoic = 1 point -- Shape: Padpz-qvyi-mtco = 0 points -- Margin: Smooth = 0 points -- Echogenic Foci: None = 0 points -- Additional Findings: None. -- ACR TI-RADS Score = 3. -- ACR TI-RADS Category = 3. LEFT LOBE: Size = 5.8 x 2.3 x 1.8 cm. - Echogenicity: Heterogeneous - Vascularity: Normal. - Nodules < 1 cm: 1 - Nodules >= 1 cm or Suspicious Nodules: 1 - NODULE # 1 -- Location: left mid -- Size: 2.4 x 1.5 x 1.3 cm -- Composition: Mixed cystic & solid = 1 point -- Echogenicity: Hyperechoic or Isoechoic = 1 point -- Shape: Zkket-izob-oxex = 0 points -- Margin: Smooth = 0 points -- Echogenic Foci: None = 0 points -- Additional Findings: None. -- ACR TI-RADS Score = 2. -- ACR TI-RADS Category = TR-2 (1-2 points). ISTHMUS: Thickness = 1.5 cm. - Nodules < 1 cm: 2 - Nodules >= 1 cm or Suspicious Nodules: None. LYMPH NODES: No abnormal lymph nodes. PARATHYROID GLANDS: No abnormal parathyroid gland. ADDITIONAL FINDINGS: None. IMPRESSION: Mildly enlarged thyroid gland with multiple nodules as described. 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 Note: Nodule size based on mean (average) size of 3 dimensions. Note: Nodules < 1 cm do not typically require follow-up or FNA unless there are suspicious features ( AMINTA, 2015) ACR TI-RADS Thyroid Nodule Recommendations TI-RADS 1 (0 points) -- Benign. No FNA or follow-up. TI-RADS 2 (1-2 points) -- Not suspicious. No FNA or follow-up. TI-RADS 3 (3 points) -- Mildly suspicious. Follow up in 1 year if 1.5 cm. FNA if 2.5 cm. TI-RADS 4 (4-6 points) -- Moderately suspicious. Follow up in 1 year if 1.0 cm. FNA if 1.5 cm. TI-RADS 5 (7+ points) -- Highly suspicious. Follow up in 1 year if 0.5 cm. FNA if 1.0 cm. Signer Name: Davis Viera Jr, MD Signed: 03/25/2019 2:52 PM Workstation Name: [id number]
== END 2019-03-25 11:23 | disposition home or self-care (01) ==
LOC: US 11:22
PROVIDERS: ATTEND Internal Medicine
DX: E04.2 Nontoxic multinodular goiter (principal); I10 Essential (primary) hypertension; E11.9 Type 2 diabetes mellitus without complications; Z90.710 Acquired absence of both cervix and uterus
CPT/HCPCS: 76536

== ENCOUNTER 2019-04-06 16:44 | Inpatient (IN) | payer MEDICARE ==
[2019-04-06] MEDS ORDERED: REGLAN ONE (17:11)
[2019-04-06] MEDS ORDERED: MORPHINE ONE (17:11)
[2019-04-06] MEDS ORDERED: MORPHINE IV ONE ×3 (17:24→19:29)
[2019-04-06] MEDS ORDERED: REGLAN IV ONE (17:24)
--- NOTE | 2019-04-06 17:35 | Emergency Department Report ---
ED Abdominal Pain HPI - General Chief Complaint: Abdominal Pain Stated Complaint: ABD PAIN/VOMITING Time Seen by Provider: 04/06/19 17:20 Source: patient, EMS Mode of arrival: Stretcher Limitations: No Limitations - History of Present Illness Initial Comments: 83 yo F with history of multiple abdominal surgeries presents c/o upper abdominal pain x 1 day. Per patient she has vomited 2 times. Pain well controlled at time of examiation secondary to triage pain control. Pt denies fever, cough, sob, urinary sx, cp or sob. MD Complaint: abdominal pain -: Gradual Location: LUQ, RUQ, epigastric Radiation: none Migration to: no migration Severity: moderate Severity scale (0 -10): 5 Quality: cramping, fullness Consistency: constant Improves With: medication Worsens With: nothing Associated Symptoms: nausea, vomiting - Related Data Home Medications Medication Instructions Recorded Confirmed Last Taken Losartan Potassium [Cozaar] 50 mg PO DAILY 02/04/18 02/25/18 02/04/18 Previous Rx's Medication Instructions Recorded Last Taken Type Acetaminophen [Acetaminophen TAB] 650 mg PO Q4H PRN #30 tablet 03/02/18 Unknown Rx Potassium Chloride [K-Dur] 10 meq PO BID #14 tablet 03/02/18 Unknown Rx ALBUTEROL Inhaler(NF) [VENTOLIN 2 puff IH Q4HRT PRN #1 inha 11/20/18 Unknown Rx Inhaler(NF)] Azithromycin [Zithromax Z-ROSA] 1 dose PO DAILY 5 Days tab 11/20/18 Unknown Rx Inhaler, Assist Devices [Space 1 each MC PRN PRN #1 spacer 11/20/18 Unknown Rx Chamber Plus] Prednisone [predniSONE 10 mg 10 mg PO .TAPER #1 tab.ds.pk 11/20/18 Unknown Rx (6-Day Pack, 21 Tabs)] guaiFENesin/DEXTROMETHORPHAN 1 tab PO BID PRN #20 tab 11/20/18 Unknown Rx [Mucinex DM ER 600-30 mg TAB] Allergies Allergy/AdvReac Type Severity Reaction Status Date / Time No Known Allergies Allergy Verified 04/06/19 16:52 ED Review of Systems ROS: Stated complaint: ABD PAIN/VOMITING Other details as noted in HPI Respiratory: no symptoms reported Cardiovascular: denies: chest pain, palpitations, dyspnea on exertion, orthopnea Gastrointestinal: abdominal pain, nausea Genitourinary: denies: urgency, dysuria, frequency Neurological: denies: headache, weakness, numbness, paresthesias Psychiatric: denies: anxiety, depression Hematological/Lymphatic: as per HPI ED Past Medical Hx - Past Medical History Previous Medical History?: Yes Hx Hypertension: Yes (on losartan) Hx Diabetes: Yes Hx Renal Disease: No Additional medical history: vertigo - Surgical History Past Surgical History?: Yes Additional Surgical History: Right Knee Replacement, Hysterectomy,, status post resection tail of pancreas and splenectomy, secondary to pancreatic cyst - Social History Smoking Status: Never Smoker Substance Use Type: None - Medications Home Medications: Home Medications Medication Instructions Recorded Confirmed Last Taken Type Losartan Potassium [Cozaar] 50 mg PO DAILY 02/04/18 02/25/18 02/04/18 History Acetaminophen [Acetaminophen TAB] 650 mg PO Q4H PRN #30 tablet 03/02/18 Unknown Rx Potassium Chloride [K-Dur] 10 meq PO BID #14 tablet 03/02/18 Unknown Rx ALBUTEROL Inhaler(NF) [VENTOLIN 2 puff IH Q4HRT PRN #1 inha 11/20/18 Unknown Rx Inhaler(NF)] Azithromycin [Zithromax Z-ROSA] 1 dose PO DAILY 5 Days tab 11/20/18 Unknown Rx Inhaler, Assist Devices [Space 1 each MC PRN PRN #1 spacer 11/20/18 Unknown Rx Chamber Plus] Prednisone [predniSONE 10 mg 10 mg PO .TAPER #1 tab.ds.pk 11/20/18 Unknown Rx (6-Day Pack, 21 Tabs)] guaiFENesin/DEXTROMETHORPHAN 1 tab PO BID PRN #20 tab 11/20/18 Unknown Rx [Mucinex DM ER 600-30 mg TAB] ED Physical Exam - General Limitations: No Limitations General appearance: alert, in distress - Head Head exam: Present: atraumatic - Eye Eye exam: Present: PERRL, EOMI - ENT ENT exam: Present: normal exam, mucous membranes moist - Neck Neck exam: Present: normal inspection - Respiratory Respiratory exam: Present: normal lung sounds bilaterally. Absent: respiratory distress, wheezes - Cardiovascular Cardiovascular Exam: Present: regular rate, normal rhythm - GI/Abdominal GI/Abdominal exam: Present: soft, tenderness, normal bowel sounds. Absent: distended, guarding, rebound, rigid - Rectal Rectal exam: Present: deferred - Extremities Exam Extremities exam: Present: normal inspection, full ROM - Back Exam Back exam: Present: normal inspection, full ROM - Neurological Exam Neurological exam: Present: alert, oriented X3 - Psychiatric Psychiatric exam: Present: normal affect, normal mood - Skin Skin exam: Present: warm ED Course Vital Signs 04/06/19 04/06/19 04/06/19 17:04 17:16 18:03 Temperature 97.5 F L Pulse Rate 75 62 59 L Respiratory 17 13 16 Rate Blood Pressure 155/70 Blood Pressure 115/74 [Left] O2 Sat by Pulse 96 Oximetry 04/06/19 04/06/19 04/06/19 18:04 19:34 21:17 Temperature Pulse Rate 64 Respiratory 16 19 18 Rate Blood Pressure Blood Pressure 136/64 [Left] O2 Sat by Pulse 96 97 Oximetry Vital Signs 04/06/19 04/06/19 04/06/19 17:04 17:16 18:03 Temperature 97.5 F L Pulse Rate 75 62 59 L Respiratory 17 13 16 Rate Blood Pressure 155/70 Blood Pressure 115/74 [Left] O2 Sat by Pulse 96 Oximetry 04/06/19 04/06/19 04/06/19 18:04 19:34 21:17 Temperature Pulse Rate 64 Respiratory 16 19 18 Rate Blood Pressure Blood Pressure 136/64 [Left] O2 Sat by Pulse 96 97 Oximetry ED Medical Decision Making - Lab Data Result diagrams: 04/06/19 17:30 04/06/19 17:30 Lab Results 04/06/19 04/06/19 04/06/19 Range/Units 17:30 17:30 17:30 WBC 8.7 (4.5-11.0) K/mm3 RBC 5.08 H (3.65-5.03) M/mm3 Hgb 13.6 (10.1-14.3) gm/dl Hct 42.7 (30.3-42.9) % MCV 84 (79-97) fl MCH 27 L (28-32) pg MCHC 32 (30-34) % RDW 14.4 (13.2-15.2) % Plt Count 206 (140-440) K/mm3 Lymph % (Auto) 36.3 H (13.4-35.0) % [place] % (Auto) 8.3 H (0.0-7.3) % Eos % (Auto) 0.4 (0.0-4.3) % Baso % (Auto) 1.0 (0.0-1.8) % Lymph # 3.2 (1.2-5.4) K/mm3 [place] # 0.7 (0.0-0.8) K/mm3 Eos # 0.0 (0.0-0.4) K/mm3 Baso # 0.1 (0.0-0.1) K/mm3 Seg Neutrophils % 54.0 (40.0-70.0) % Seg Neutrophils # 4.7 (1.8-7.7) K/mm3 Sodium 138 (137-145) mmol/L Potassium 3.3 L (3.6-5.0) mmol/L Chloride 94.7 L (98-107) mmol/L Carbon Dioxide 24 (22-30) mmol/L Anion Gap 23 mmol/L BUN 17 (7-17) mg/dL Creatinine 0.6 L (0.7-1.2) mg/dL Estimated GFR > 60 ml/min BUN/Creatinine Ratio 28 % Glucose 208 H (65-100) mg/dL Lactic Acid 5.60 H* (0.7-2.0) mmol/L Calcium 10.2 (8.4-10.2) mg/dL Total Bilirubin 0.30 (0.1-1.2) mg/dL AST 13 (5-40) units/L ALT 7 (7-56) units/L Alkaline Phosphatase 97 (35-129) units/L Total Protein 8.3 H (6.3-8.2) g/dL Albumin 4.2 (3.9-5) g/dL Albumin/Globulin Ratio 1.0 % Lipase (13-60) units/L // Range/Units 17:30 WBC (4.5-11.0) K/mm3 RBC (3.65-5.03) M/mm3 Hgb (10.1-14.3) gm/dl Hct (30.3-42.9) % MCV (79-97) fl MCH (28-32) pg MCHC (30-34) % RDW (13.2-15.2) % Plt Count (140-440) K/mm3 Lymph % (Auto) (13.4-35.0) % [place] % (Auto) (0.0-7.3) % Eos % (Auto) (0.0-4.3) % Baso % (Auto) (0.0-1.8) % Lymph # (1.2-5.4) K/mm3 [place] # (0.0-0.8) K/mm3 Eos # (0.0-0.4) K/mm3 Baso # (0.0-0.1) K/mm3 Seg Neutrophils % (40.0-70.0) % Seg Neutrophils # (1.8-7.7) K/mm3 Sodium (137-145) mmol/L Potassium (3.6-5.0) mmol/L Chloride (98-107) mmol/L Carbon Dioxide (22-30) mmol/L Anion Gap mmol/L BUN (7-17) mg/dL Creatinine (0.7-1.2) mg/dL Estimated GFR ml/min BUN/Creatinine Ratio % Glucose (65-100) mg/dL Lactic Acid (0.7-2.0) mmol/L Calcium (8.4-10.2) mg/dL Total Bilirubin (0.1-1.2) mg/dL AST (5-40) units/L ALT (7-56) units/L Alkaline Phosphatase (35-129) units/L Total Protein (6.3-8.2) g/dL Albumin (3.9-5) g/dL Albumin/Globulin Ratio % Lipase 24 (13-60) units/L - Radiology Data FINDINGS: LOWER CHEST: No significant abnormality. LIVER: Multiple hepatic cysts measure up to 1.3 cm. No additional significant abnormality. BILIARY: No significant abnormality. PANCREAS: No significant abnormality. SPLEEN: Surgically absent. ADRENALS: No significant abnormality. KIDNEYS AND URETERS: Left renal cysts are stable. No additional significant abnormality. GI TRACT: No significant abnormality of the stomach, small bowel or colon. Unremarkable appendix. PERITONEUM: No free fluid. No free air. No fluid collection. LYMPH NODES: No significant adenopathy. VASCULATURE: The aorta is normal in caliber with mild generalized atherosclerosis. URINARY BLADDER: No significant abnormality. REPRODUCTIVE ORGANS: Prior hysterectomy. No significant abnormality. ADDITIONAL FINDINGS: None. SKELETAL SYSTEM: Osteopenia is noted with degenerative changes throughout the spine and pelvis. No acute abnormality. IMPRESSION: 1. No acute abnormality of the abdomen or pelvis. 2. Additional findings as above. - Medical Decision Making 83-year-old female presents with abdominal pain nausea vomiting times one day. CT negative for acute process. Labs reviewed patient still complaining of pain. Patient accepted by internal medicine service for admission and further observation. Critical care attestation.: If time is entered above; I have spent that time in minutes in the direct care of this critically ill patient, excluding procedure time. ED Disposition Clinical Impression: Abdominal pain, DVT prophylaxis Disposition: OP ADMIT IP TO THIS HOSP Is pt being admited?: Yes Does the pt Need Aspirin: No Condition: Fair Instructions: Abdominal Pain (ED) Time of Disposition: 21:48
[2019-04-06 18:06] LABS: Basophils # (Auto) 0.1 K/mm3 (0.0-0.1); Eosinophils % (Auto) 0.4 % (0.0-4.3); Hematocrit 42.7 % (30.3-42.9); Hemoglobin 13.6 gm/dl (10.1-14.3); Lymphocytes # (Auto) 3.2 K/mm3 (1.2-5.4); Lymphocytes % (Auto) 36.3 % (13.4-35.0); Mean Corpuscular HGB Conc 32 % (30-34); Mean Corpuscular Volume 84 fl (79-97); Monocytes # (Auto) 0.7 K/mm3 (0.0-0.8); Monocytes % (Auto) 8.3 % (0.0-7.3); Platelet Count 206 K/mm3 (140-440); Red Blood Count 5.08 M/mm3 (3.65-5.03); Red Cell Distribution Width 14.4 % (13.2-15.2)
[2019-04-06 18:11] LABS: Alanine Aminotransferase 7 units/L (7-56); Albumin 4.2 g/dL (3.9-5); BUN/Creatinine Ratio 28; Blood Urea Nitrogen 17 mg/dL (7-17); Calcium 10.2 mg/dL (8.4-10.2); Hemolysis Index 8
--- NOTE | 2019-04-06 20:13 | Cat Scan Report ---
CT ABDOMEN AND PELVIS WITH CONTRAST INDICATION: Unspecified severe abdominal pain. COMPARISON: CT abdomen and pelvis with contrast from 02/25/2018. TECHNIQUE: Axial, coronal and sagittal CT imaging of the abdomen and pelvis was performed after inje ction of 100 mL Omnipaque [address] scans at this location are performed using CT dose re duction for ALARA by means of automated exposure control. FINDINGS: LOWER CHEST: No significant abnormality. LIVER: Multiple hepatic cysts measure up to 1.3 cm. No additional significant abnormality. BILIARY: No significant abnormality. PANCREAS: No significant abnormality. SPLEEN: Surgically absent. ADRENALS: No significant abnormality. KIDNEYS AND URETERS: Left renal cysts are stable. No additional significant abnormality. GI TRACT: No significant abnormality of the stomach, small bowel or colon. Unremarkable appendix. PERITONEUM: No free fluid. No free air. No fluid collection. LYMPH NODES: No significant adenopathy. VASCULATURE: The aorta is normal in caliber with mild generalized atherosclerosis. URINARY BLADDER: No significant abnormality. REPRODUCTIVE ORGANS: Prior hysterectomy. No significant abnormality. ADDITIONAL FINDINGS: None. SKELETAL SYSTEM: Osteopenia is noted with degenerative changes throughout the spine and pelvis. No ac [place] abnormality. IMPRESSION: 1. No acute abnormality of the abdomen or pelvis. 2. Additional findings as above. Signer Name: Royer De Los Santos MD Signed: 04/06/2019 8:09 PM Workstation Name: [id number]
[2019-04-06] MEDS ORDERED: NACL 0.9% 1000 ML 1,000 ML IV ONE (21:04)
[2019-04-06] MEDS ORDERED: DILAUDID IV ONE (21:06)
--- NOTE | 2019-04-06 21:30 | History and Physical Report ---
History of Present Illness Chief complaint: I have pain in my belly History of present illness: 83-year-old woman history of multiple abdominal surgeries who presented with upper abdominal pain 1 day and vomiting 2. Unable to tolerate by mouth. Pain is severe in nature probably 8 out of 10, it is dull in the upper abdomen in the hypogastrium, nonradiating. Denies history of recent endoscopy. Pain is associated with anorexia. Patient relates that since she had resection of part of her pancreas and splenectomy to her digestive tract has just not been rates. She's had issues with digestion since then. Pain is improved since receiving pain meds in the ER Past History Past Medical History:hypertension, diabetes, vertigo, history of pancreatic cyst adenoma status post resection, asthma/COPD, vertigo, reactive airway disease Past Surgical History: hysterectomy, right total knee replacement, status post resection tail of pancreas and splenectomy, secondary to pancreatic cyst Social history: . denies: smoking, alcohol abuse, prescription drug abuse Family history: hypertension Medications and Allergies Allergies Allergy/AdvReac Type Severity Reaction Status Date / Time No Known Allergies Allergy Verified 04/06/19 16:52 Home Medications Medication Instructions Recorded Confirmed Last Taken Type Losartan Potassium [Cozaar] 50 mg PO DAILY 02/04/18 04/07/19 02/04/18 History Acetaminophen [Acetaminophen TAB] 650 mg PO Q4H PRN #30 tablet 03/02/18 04/07/19 Unknown Rx Potassium Chloride [K-Dur] 10 meq PO BID #14 tablet 03/02/18 04/07/19 Unknown Rx ALBUTEROL Inhaler(NF) [VENTOLIN 2 puff IH Q4HRT PRN #1 inha 11/20/18 04/07/19 Unknown Rx Inhaler(NF)] Azithromycin [Zithromax Z-ROSA] 1 dose PO DAILY 5 Days tab 11/20/18 04/07/19 Unknown Rx Inhaler, Assist Devices [Space 1 each MC PRN PRN #1 spacer 11/20/18 04/07/19 Unknown Rx Chamber Plus] Prednisone [predniSONE 10 mg 10 mg PO .TAPER #1 tab.ds.pk 11/20/18 04/07/19 Unknown Rx (6-Day Pack, 21 Tabs)] guaiFENesin/DEXTROMETHORPHAN 1 tab PO BID PRN #20 tab 11/20/18 04/07/19 Unknown Rx [Mucinex DM ER 600-30 mg TAB] Active Meds: Active Medications Sodium Chloride (Nacl 0.9% 1000 Ml) 1,000 mls @ 999 mls/hr IV BOLUS ONE Stop: 04/06/19 22:04 Last Admin: 04/06/19 21:17 Dose: 999 mls/hr Documented by: Review of Systems All systems: negative Constitutional: anorexia, no weight loss Ears, nose, mouth and throat: no ear pain Breasts: deferred Cardiovascular: no chest pain Respiratory: no cough Gastrointestinal: abdominal pain, nausea, vomiting Genitourinary Female: no dysuria Rectal: no pain Musculoskeletal: no neck stiffness Integumentary: no rash Neurological: no head injury Psychiatric: no anxiety Endocrine: no cold intolerance Hematologic/Lymphatic: no easy bruising Allergic/Immunologic: no urticaria Exam - Constitutional Vitals: Temp Pulse Resp BP Pulse Ox 97.5 F L 64 18 136/64 97 04/06/19 18:03 04/06/19 19:34 04/06/19 21:17 04/06/19 19:34 04/06/19 19:34 General appearance: Present: mild distress, well-nourished - EENT Eyes: Present: PERRL ENT: hearing intact, clear oral mucosa - Neck Neck: Present: supple, normal ROM - Respiratory Respiratory effort: normal Respiratory: bilateral: CTA - Cardiovascular Heart Sounds: Present: S1 & S2. Absent: rub, click - Extremities Extremities: pulses symmetrical, No edema Peripheral Pulses: within normal limits - Abdominal General gastrointestinal: Present: soft, non-distended, normal bowel sounds Localized gastrointestinal: tender: epigastric periumbilical Female genitourinary: Present: normal - Integumentary Integumentary: Present: clear, warm, dry - Musculoskeletal Musculoskeletal: gait normal, strength equal bilaterally - Psychiatric Psychiatric: appropriate mood/affect, intact judgment & insight - Neurologic Neurologic: CNII-XII intact, moves all extremities Results - Labs CBC & Chem 7: 04/07/19 04:43 04/07/19 04:43 Labs: Laboratory Last Values WBC 8.7 K/mm3 (4.5-11.0) 04/06/19 17:30 RBC 5.08 M/mm3 (3.65-5.03) H 04/06/19 17:30 Hgb 13.6 gm/dl (10.1-14.3) 04/06/19 17:30 Hct 42.7 % (30.3-42.9) 04/06/19 17:30 MCV 84 fl (79-97) 04/06/19 17:30 MCH 27 pg (28-32) L 04/06/19 17:30 MCHC 32 % (30-34) 04/06/19 17:30 RDW 14.4 % (13.2-15.2) 04/06/19 17:30 Plt Count 206 K/mm3 (140-440) 04/06/19 17:30 Lymph % (Auto) 36.3 % (13.4-35.0) H 04/06/19 17:30 [place] % (Auto) 8.3 % (0.0-7.3) H 04/06/19 17:30 Eos % (Auto) 0.4 % (0.0-4.3) 04/06/19 17:30 Baso % (Auto) 1.0 % (0.0-1.8) 04/06/19 17:30 Lymph # 3.2 K/mm3 (1.2-5.4) 04/06/19 17:30 [place] # 0.7 K/mm3 (0.0-0.8) 04/06/19 17:30 Eos # 0.0 K/mm3 (0.0-0.4) 04/06/19 17:30 Baso # 0.1 K/mm3 (0.0-0.1) 04/06/19 17:30 Seg Neutrophils % 54.0 % (40.0-70.0) 04/06/19 17:30 Seg Neutrophils # 4.7 K/mm3 (1.8-7.7) 04/06/19 17:30 Sodium 138 mmol/L (137-145) 04/06/19 17:30 Potassium 3.3 mmol/L (3.6-5.0) L 04/06/19 17:30 Chloride 94.7 mmol/L (98-107) L 04/06/19 17:30 Carbon Dioxide 24 mmol/L (22-30) 04/06/19 17:30 23 mmol/L 04/06/19 17:30 BUN 17 mg/dL (7-17) 04/06/19 17:30 0.6 mg/dL (0.7-1.2) L 04/06/19 17:30 Estimated GFR > 60 ml/min 04/06/19 17:30 28 % 04/06/19 17:30 Glucose 208 mg/dL (65-100) H 04/06/19 17:30 Lactic Acid 5.60 mmol/L (0.7-2.0) H* 04/06/19 17:30 Calcium 10.2 mg/dL (8.4-10.2) 04/06/19 17:30 0.30 mg/dL (0.1-1.2) 04/06/19 17:30 AST 13 units/L (5-40) 04/06/19 17:30 ALT 7 units/L (7-56) 04/06/19 17:30 97 units/L (35-129) 04/06/19 17:30 8.3 g/dL (6.3-8.2) H 04/06/19 17:30 4.2 g/dL (3.9-5) 04/06/19 17:30 1.0 % 04/06/19 17:30 24 units/L (13-60) 04/06/19 17:30 - Imaging and Cardiology CT scan - abdomen: image reviewed (no acute findings) Assessment and Plan Assessment and plan: Elderly Woman with history of multiple abdominal surgeries who presents with upper abdominal pain [address] abdomen and pelvis; no acute abnormalities Abdominal pain with intractable nausea vomiting CT abdomen is benign, differential diagnoses include gastric outlet obstruction, peptic ulcer disease. Admit patient to hospital, keep nothing by mouth, IV fluids, pain meds and antiemetics, GI consult, PPI -Bladder appears distended on exam, straight cath and send urine for UA -NPO for now, patient says she doesnt want to even think about food or liquids Lactic acidosis May be due to vomiting, follow-up UA, no evidence of infection at this point Hypertension, diabetes -IV blood pressure meds, sliding scale Hypokalemia, chronic, continue potassium supplements Asthma; albuterol when necessary VTE prophylaxis?: Chemical
[2019-04-06] MEDS ORDERED: DILAUDID IV PRN (21:37)
[2019-04-06] MEDS ORDERED: SODIUM CHLORIDE FLUSH SYRINGE 10 ML IV PRN (21:37)
[2019-04-06] MEDS ORDERED: ZOFRAN IV PRN (21:37)
[2019-04-06] MEDS ORDERED: TYLENOL PO PRN (21:37)
[2019-04-06] MEDS ORDERED: APRESOLINE IV PRN (21:39)
[2019-04-06] MEDS ORDERED: D50W (25GM) Syringe IV PRN (21:40)
[2019-04-06] MEDS ORDERED: PROVENTIL IH PRN (21:41)
[2019-04-06] MEDS ORDERED: PROTONIX IV ONE (23:13)
[2019-04-06] MEDS: PROTONIX IV SCH (23:17)
[2019-04-06] MEDS: KCL 10 MEQ in NACL 0.9% 1000 ML 1,000 ML IV SCH (23:56)
[2019-04-06] MEDS: SODIUM CHLORIDE FLUSH SYRINGE 10 ML IV SCH (23:57)
[2019-04-07] MEDS: HumaLOG SUB-Q SCH ×4 (00:02→18:26)
[2019-04-07 05:16] LABS: Basophils % (Auto) 0.4 % (0.0-1.8); Hematocrit 38.9 % (30.3-42.9); Hemoglobin 12.8 gm/dl (10.1-14.3); Lymphocytes # (Auto) 1.3 K/mm3 (1.2-5.4); Lymphocytes % (Auto) 10.8 % (13.4-35.0); Mean Corpuscular HGB Conc 33 % (30-34); Mean Corpuscular Volume 82 fl (79-97); Monocytes # (Auto) 0.5 K/mm3 (0.0-0.8); Monocytes % (Auto) 3.9 % (0.0-7.3); Platelet Count 226 K/mm3 (140-440); Red Blood Count 4.73 M/mm3 (3.65-5.03); Red Cell Distribution Width 14.5 % (13.2-15.2)
[2019-04-07 05:36] LABS: BUN/Creatinine Ratio 28; Blood Urea Nitrogen 14 mg/dL (7-17); Calcium 8.8 mg/dL (8.4-10.2); Hemolysis Index 31
[2019-04-07 06:41] LABS: Bilirubin,Urine NEG (Negative); Blood,Urine MOD (Negative); Color,Urine Yellow (Yellow); Mucus,Urine FEW /HPF; Protein,Urine <15 mg/dL mg/dL (Negative); Urobilinogen,Urine < 2.0 mg/dL (<2.0)
--- NOTE | 2019-04-07 08:11 | Gastroenterology Consultation ---
History of Present Illness - Reason for Consult Consult date: 04/07/19 Abd pain N/V Requesting physician: BHAVNA AGUILAR - History of Present Illness 83-year-old female with PSH as below who presented with upper abdominal pain 1 day and vomiting 2. Unable to tolerate by mouth. 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 denies: smoking, alcohol abuse, prescription drug abuse Family history: hypertension Medications and Allergies Allergies Allergy/AdvReac Type Severity Reaction Status Date / Time No Known Allergies Allergy Verified 04/06/19 16:52 Home Medications Medication Instructions Recorded Confirmed Last Taken Type Losartan Potassium [Cozaar] 50 mg PO DAILY 02/04/18 04/07/19 02/04/18 History Acetaminophen [Acetaminophen TAB] 650 mg PO Q4H PRN #30 tablet 03/02/18 04/07/19 Unknown Rx Potassium Chloride [K-Dur] 10 meq PO BID #14 tablet 03/02/18 04/07/19 Unknown Rx ALBUTEROL Inhaler(NF) [VENTOLIN 2 puff IH Q4HRT PRN #1 inha 11/20/18 04/07/19 Unknown Rx Inhaler(NF)] Azithromycin [Zithromax Z-ROSA] 1 dose PO DAILY 5 Days tab 11/20/18 04/07/19 Unknown Rx Inhaler, Assist Devices [Space 1 each MC PRN PRN #1 spacer 11/20/18 04/07/19 Unknown Rx Chamber Plus] Prednisone [predniSONE 10 mg 10 mg PO .TAPER #1 tab.ds.pk 11/20/18 04/07/19 Unknown Rx (6-Day Pack, 21 Tabs)] guaiFENesin/DEXTROMETHORPHAN 1 tab PO BID PRN #20 tab 11/20/18 04/07/19 Unknown Rx [Mucinex DM ER 600-30 mg TAB] Active Meds: Active Medications Acetaminophen (Tylenol) 650 mg PO Q4H PRN PRN Reason: Pain MILD(1-3)/Fever >100.5/PADILLA Albuterol (Proventil) 2.5 mg IH Q4HRT PRN PRN Reason: Shortness Of Breath Dextrose (D50w (25gm) Syringe) 50 ml IV PRN PRN PRN Reason: Hypoglycemia Enoxaparin Sodium (Lovenox) 40 mg SUB-Q QDAY [facility] Hydralazine HCl (Apresoline) 10 mg IV Q4H PRN PRN Reason: BP >160/100 Hydromorphone HCl (Dilaudid) 0.5 mg IV Q3H PRN PRN Reason: Pain, Moderate (4-6) Last Admin: 04/07/19 00:21 Dose: 0.5 mg Documented by: Potassium Chloride 10 meq/ (Sodium Chloride) 1,005 mls @ 100 mls/hr IV DIRECT [facility] Last Admin: 04/06/19 23:56 Dose: 100 mls/hr Documented by: Insulin Human Lispro (Humalog) 0 unit SUB-Q Q6HR [facility]; Protocol Last Admin: 04/07/19 06:15 Dose: 3 unit Documented by: Ondansetron HCl (Zofran) 4 mg IV Q4H PRN PRN Reason: Nausea And Vomiting Pantoprazole Sodium (Protonix) 40 mg IV QDAY [facility] Last Admin: 04/06/19 23:17 Dose: 40 mg Documented by: Sodium Chloride (Sodium Chloride Flush Syringe 10 Ml) 10 ml IV BID [facility] Last Admin: 04/06/19 23:57 Dose: 10 ml Documented by: Sodium Chloride (Sodium Chloride Flush Syringe 10 Ml) 10 ml IV PRN PRN PRN Reason: LINE FLUSH Last Admin: 04/06/19 23:17 Dose: 10 ml Documented by: Review of Systems - Review of Systems All systems: negative Gastrointestinal: abdominal pain, nausea, vomiting Exam - Constitutional Vital Signs: Temp Pulse Resp BP Pulse Ox 98.9 F 77 18 160/75 94 04/06/19 23:31 04/06/19 23:31 04/07/19 00:51 04/06/19 23:31 04/06/19 23:31 General appearance: no acute distress - EENT ENT: hearing intact - Respiratory Respiratory effort: normal - Cardiovascular Rhythm: regular Heart Sounds: Present: systolic murmur - Gastrointestinal General gastrointestinal: Present: soft, non-tender - Integumentary Integumentary: Present: warm - Neurologic Neurological: alert and oriented x3 - Psychiatric Psychiatric: appropriate mood/affect - Labs CBC & Chem 7: 04/07/19 04:43 04/07/19 04:43 Lab Results: Laboratory Results - last 24 hr 04/06/19 04/06/19 04/06/19 17:30 17:30 17:30 WBC 8.7 RBC 5.08 H Hgb 13.6 Hct 42.7 MCV 84 MCH 27 L MCHC 32 RDW 14.4 Plt Count 206 Lymph % (Auto) 36.[address] [place] % (Auto) 8.3 H Eos % (Auto) 0.4 Baso % (Auto) 1.0 Lymph # 3.2 [place] # 0.7 Eos # 0.0 Baso # 0.1 Seg Neutrophils % 54.0 Seg Neutrophils # 4.7 Sodium 138 Potassium 3.3 L Chloride 94.7 L Carbon Dioxide 24 Anion Gap 23 BUN 17 Creatinine 0.6 L Estimated GFR > 60 BUN/Creatinine Ratio 28 Glucose 208 H POC Glucose Hemoglobin A1c Lactic Acid 5.60 H* Calcium 10.2 Total Bilirubin 0.30 AST 13 ALT 7 Alkaline Phosphatase 97 Total Protein 8.3 H Albumin 4.2 Albumin/Globulin Ratio 1.0 Lipase Urine Color Urine Turbidity Urine pH Ur Specific [place] Urine Protein Urine Glucose (UA) Urine Ketones Urine Blood Urine Nitrite Urine Bilirubin Urine Urobilinogen Ur Leukocyte Esterase Urine WBC (Auto) Urine RBC (Auto) U Epithel Cells (Auto) Urine Mucus 04/06/19 04/06/19 04/06/19 17:30 17:30 21:14 WBC RBC Hgb Hct MCV MCH MCHC RDW Plt Count Lymph % (Auto) [place] % (Auto) Eos % (Auto) Baso % (Auto) Lymph # [place] # Eos # Baso # Seg Neutrophils % Seg Neutrophils # Sodium Potassium Chloride Carbon Dioxide Anion Gap BUN Creatinine Estimated GFR BUN/Creatinine Ratio Glucose POC Glucose Hemoglobin A1c 7.1 H Lactic Acid 7.90 H* Calcium Total Bilirubin AST ALT Alkaline Phosphatase Total Protein Albumin Albumin/Globulin Ratio Lipase 24 Urine Color Urine Turbidity Urine pH Ur Specific [place] Urine Protein Urine Glucose (UA) Urine Ketones Urine Blood Urine Nitrite Urine Bilirubin Urine Urobilinogen Ur Leukocyte Esterase Urine WBC (Auto) Urine RBC (Auto) U Epithel Cells (Auto) Urine Mucus 04/07/19 04/07/19 04/07/19 00:01 00:19 04:43 WBC 11.6 H RBC 4.73 Hgb 12.8 Hct 38.9 MCV 82 MCH 27 L MCHC 33 RDW 14.5 Plt Count 226 Lymph % (Auto) 10.[address] [place] % (Auto) 3.9 Eos % (Auto) 0.0 Baso % (Auto) 0.4 Lymph # 1.3 [place] # 0.5 Eos # 0.0 Baso # 0.0 Seg Neutrophils % 84.9 H Seg Neutrophils # 9.8 H Sodium Potassium Chloride Carbon Dioxide Anion Gap BUN Creatinine Estimated GFR BUN/Creatinine Ratio Glucose POC Glucose 275 H Hemoglobin A1c Lactic Acid 4.50 H* Calcium Total Bilirubin AST ALT Alkaline Phosphatase Total Protein Albumin Albumin/Globulin Ratio Lipase Urine Color Urine Turbidity Urine pH Ur Specific [place] Urine Protein Urine Glucose (UA) Urine Ketones Urine Blood Urine Nitrite Urine Bilirubin Urine Urobilinogen Ur Leukocyte Esterase Urine WBC (Auto) Urine RBC (Auto) U Epithel Cells (Auto) Urine Mucus 04/07/19 04/07/19 04/07/19 04:43 06:07 06:20 WBC RBC Hgb Hct MCV MCH MCHC RDW Plt Count Lymph % (Auto) [place] % (Auto) Eos % (Auto) Baso % (Auto) Lymph # [place] # Eos # Baso # Seg Neutrophils % Seg Neutrophils # Sodium 134 L Potassium 4.2 D Chloride 95.9 L Carbon Dioxide 24 Anion Gap 18 BUN 14 Creatinine 0.5 L Estimated GFR > 60 BUN/Creatinine Ratio 28 Glucose 280 H POC Glucose 286 H Hemoglobin A1c Lactic Acid Calcium 8.8 Total Bilirubin AST ALT Alkaline Phosphatase Total Protein Albumin Albumin/Globulin Ratio Lipase Urine Color Yellow Urine Turbidity Slightly-cloudy Urine pH 6.0 Ur Specific [place] 1.024 Urine Protein <15 mg/dl Urine Glucose (UA) >=500 Urine Ketones Tr Urine Blood Mod Urine Nitrite Neg Urine Bilirubin Neg Urine Urobilinogen < 2.0 Ur Leukocyte Esterase Neg Urine WBC (Auto) 2.0 Urine RBC (Auto) 33.0 U Epithel Cells (Auto) < 1.0 Urine Mucus Few Assessment and Plan * start diet and advance as tolerated * symptoms improving, as long as tolerates diet can discharge this evening with opd followup Suspect either acute self limited infection vs less likely acute intermittant adhesion related partial SBO which resolved by the time she had abdominal imaging - Patient Problems (1) Abdominal pain Current Visit: Yes Status: Acute (2) Nausea & vomiting Current Visit: Yes Status: Acute
[2019-04-07] MEDS: PROTONIX IV SCH (10:26)
[2019-04-07] MEDS: LOVENOX SUB-Q SCH (10:26)
[2019-04-07] MEDS: SODIUM CHLORIDE FLUSH SYRINGE 10 ML IV SCH ×2 (10:27→22:10)
[2019-04-07] MEDS: KCL 10 MEQ in NACL 0.9% 1000 ML 1,000 ML IV SCH ×2 (11:28→22:09)
--- NOTE | 2019-04-07 11:52 | Progress Note ---
Assessment and Plan Assessment and plan: 83-year-old female patient with history of multiple abdominal surgeries was admitted through emergency room with intractable nausea vomiting and abdominal pain --Intractable nausea vomiting /acute gastritis; IV Protonix, patient is nothing by mouth status, start soft diet as tolerated GI following, antiemetics --Abdominal pain; patient had multiple surgeries in the past Possible small bowel obstruction which was resolved, CT abdomen no acute abnormality noted Start clear liquids and advance as tolerated --Lactic acidosis May be due to vomiting, follow-up UA, no evidence of infection at this point --Hypertension; moderate control Continue current antihypertensives and when necessary medications --2 diabetes mellitus; Accu-Chek sliding scale coverage ADA diet --Hypokalemia; corrected --DVT prophylaxis; Lovenox --Full code --PTOT evaluation and treatment --DC planning per case management Possible home with home health tomorrow if medically stable History Interval history: Patient seen and examined medical records reviewed Continues to have severe nausea , mild distress Abdominal pain significantly improved Complaints of generalized weakness Vital signs noted Hospitalist Physical - Constitutional Vitals: Temp Pulse Resp BP Pulse Ox 98.4 F 85 18 134/64 97 04/07/19 08:19 04/07/19 08:19 04/07/19 08:19 04/07/19 08:19 04/07/19 08:19 General appearance: Present: mild distress, well-nourished - EENT Eyes: Present: PERRL, EOM intact - Neck Neck: Present: supple, normal ROM - Respiratory Respiratory effort: normal Respiratory: bilateral: diminished, negative: rales, rhonchi, wheezing - Cardiovascular Rhythm: regular Heart Sounds: Present: S1 & S2 - Extremities Extremities: no ischemia, No edema - Abdominal General gastrointestinal: soft, tender (vague tenderness no guarding no rigidity) - Integumentary Integumentary: Present: clear, warm - Psychiatric Psychiatric: appropriate mood/affect, cooperative - Neurologic Neurologic: moves all extremities Results - Labs CBC & Chem 7: 04/07/19 04:43 04/07/19 04:43 Labs: Laboratory Last Values WBC 11.6 K/mm3 (4.5-11.0) H 04/07/19 04:43 RBC 4.73 M/mm3 (3.65-5.03) 04/07/19 04:43 Hgb 12.8 gm/dl (10.1-14.3) 04/07/19 04:43 Hct 38.9 % (30.3-42.9) 04/07/19 04:43 MCV 82 fl (79-97) 04/07/19 04:43 MCH 27 pg (28-32) L 04/07/19 04:43 MCHC 33 % (30-34) 04/07/19 04:43 RDW 14.5 % (13.2-15.2) 04/07/19 04:43 Plt Count 226 K/mm3 (140-440) 04/07/19 04:43 Lymph % (Auto) 10.8 % (13.4-35.0) L 04/07/19 04:43 [place] % (Auto) 3.9 % (0.0-7.3) 04/07/19 04:43 Eos % (Auto) 0.0 % (0.0-4.3) 04/07/19 04:43 Baso % (Auto) 0.4 % (0.0-1.8) 04/07/19 04:43 Lymph # 1.3 K/mm3 (1.2-5.4) 04/07/19 04:43 [place] # 0.5 K/mm3 (0.0-0.8) 04/07/19 04:43 Eos # 0.0 K/mm3 (0.0-0.4) 04/07/19 04:43 Baso # 0.0 K/mm3 (0.0-0.1) 04/07/19 04:43 Seg Neutrophils % 84.9 % (40.0-70.0) H 04/07/19 04:43 Seg Neutrophils # 9.8 K/mm3 (1.8-7.7) H 04/07/19 04:43 Sodium 134 mmol/L (137-145) L 04/07/19 04:43 Potassium 4.2 mmol/L (3.6-5.0) D 04/07/19 04:43 Chloride 95.9 mmol/L (98-107) L 04/07/19 04:43 Carbon Dioxide 24 mmol/L (22-30) 04/07/19 04:43 18 mmol/L 04/07/19 04:43 BUN 14 mg/dL (7-17) 04/07/19 04:43 0.5 mg/dL (0.7-1.2) L 04/07/19 04:43 Estimated GFR > 60 ml/min 04/07/19 04:43 28 % 04/07/19 04:43 Glucose 280 mg/dL (65-100) H 04/07/19 04:43 POC Glucose 286 (70-105) H 04/07/19 06:07 7.1 % (4-6) H 04/06/19 17:30 Lactic Acid 4.50 mmol/L (0.7-2.0) H* 04/07/19 00:19 Calcium 8.8 mg/dL (8.4-10.2) 04/07/19 04:43 0.30 mg/dL (0.1-1.2) 04/06/19 17:30 AST 13 units/L (5-40) 04/06/19 17:30 ALT 7 units/L (7-56) 04/06/19 17:30 97 units/L (35-129) 04/06/19 17:30 8.3 g/dL (6.3-8.2) H 04/06/19 17:30 4.2 g/dL (3.9-5) 04/06/19 17:30 1.0 % 04/06/19 17:30 24 units/L (13-60) 04/06/19 17:30 Yellow (Yellow) 04/07/19 06:20 Slightly-cloudy (Clear) 04/07/19 06:20 6.0 (5.0-7.0) 04/07/19 06:20 Ur Specific [place] 1.024 (1.003-1.030) 04/07/19 06:20 <15 mg/dl mg/dL (Negative) 04/07/19 06:20 >=500 mg/dL (Negative) 04/07/19 06:20 Tr mg/dL (Negative) 04/07/19 06:20 Mod (Negative) 04/07/19 06:20 Neg (Negative) 04/07/19 06:20 Neg (Negative) 04/07/19 06:20 < 2.0 mg/dL (<2.0) 04/07/19 06:20 Ur Leukocyte Esterase Neg (Negative) 04/07/19 06:20 2.0 /HPF (0.0-6.0) 04/07/19 06:20 33.0 /HPF (0.0-6.0) 04/07/19 06:20 U Epithel Cells (Auto) < 1.0 /HPF (0-13.0) 04/07/19 06:20 Few /HPF 04/07/19 06:20 Active Medications - Current Medications Current Medications: Generic Name Dose Route Start Last Admin Trade Name Freq PRN Reason Stop Dose Admin Acetaminophen 650 mg 04/06/19 21:37 Tylenol PO Q4H PRN Pain MILD(1-3)/Fever >100.5/PADILLA Albuterol 2.5 mg 04/06/19 21:41 Proventil IH Q4HRT PRN Shortness Of Breath Dextrose 50 ml 04/06/19 21:40 D50w (25gm) Syringe IV PRN PRN Hypoglycemia Enoxaparin Sodium 40 mg 04/07/19 10:00 04/07/19 10:26 Lovenox SUB-Q 40 mg QDAY IVAN Administration Hydralazine HCl 10 mg 04/06/19 21:39 Apresoline IV Q4H PRN BP >160/100 Hydromorphone HCl 0.5 mg 04/06/19 21:37 04/07/19 00:21 Dilaudid IV 0.5 mg Q3H PRN Administration Pain, Moderate (4-6) Potassium Chloride 10 meq/ 1,005 mls @ 100 mls/hr 04/06/19 21:45 04/07/19 11:28 Sodium Chloride IV 100 mls/hr DIRECT IVAN Administration Insulin Human Lispro 0 unit 04/07/19 00:00 04/07/19 06:15 Humalog SUB-Q 3 unit Q6HR IVAN Administration Protocol Ondansetron HCl 4 mg 04/06/19 21:37 Zofran IV Q4H PRN Nausea And Vomiting Pantoprazole Sodium 40 mg 04/06/19 22:00 04/07/19 10:26 Protonix IV 40 mg QDAY IVAN Administration Sodium Chloride 10 ml 04/06/19 22:00 04/07/19 10:27 Sodium Chloride Flush Syringe 10 Ml IV 10 ml BID IVAN Administration Sodium Chloride 10 ml 04/06/19 21:37 08/27/19 23:17 Sodium Chloride Flush Syringe 10 Ml IV 10 ml PRN PRN Administration LINE FLUSH
[2019-04-08] MEDS: HumaLOG SUB-Q SCH ×3 (00:15→12:31)
--- NOTE | 2019-04-08 07:39 | Gastroenterology Progress Note ---
Assessment and Plan If tolerates diet this AM and continues to do well may discharge with outpatient follow up Suspect either acute self limited infection vs less likely acute intermittant adhesion related partial SBO which resolved by the time she had abdominal imaging Given improvement in symptoms GI will sign off, please call back with any questions or concerns - Patient Problems (1) Abdominal pain Current Visit: Yes Status: Acute (2) Nausea & vomiting Current Visit: Yes Status: Acute Subjective Date of service: 04/08/19 Principal diagnosis: N/V/Abd pain Interval history: Patient reports Mild abd pain upper abd currently, no vomiting, minimal nausea, reports didn't eat yet Objective - Constitutional Vitals: Temp Pulse Resp BP Pulse Ox 99.7 F H 86 18 115/53 94 04/08/19 02:37 04/08/19 02:37 04/08/19 02:37 04/08/19 02:37 04/08/19 02:37 General appearance: no acute distress - Respiratory Respiratory: bilateral: CTA - Cardiovascular Rhythm: regular - Gastrointestinal General gastrointestinal: Present: soft, other (+BS, mild TTP ) - Labs CBC & Chem 7: 04/07/19 04:43 04/07/19 04:43 Labs: Laboratory Results - last 24 hr 04/07/19 04/07/19 04/07/19 12:38 17:49 20:59 POC Glucose 187 H 152 H Lactic Acid 1.10 04/08/19 00:03 POC Glucose 158 H Lactic Acid
[2019-04-08] MEDS: LOVENOX SUB-Q SCH (09:56)
[2019-04-08] MEDS: PROTONIX IV SCH (09:56)
[2019-04-08] MEDS: SODIUM CHLORIDE FLUSH SYRINGE 10 ML IV SCH (09:57)
--- NOTE | 2019-04-08 13:40 | Discharge Summary ---
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 Hospitalization Condition: Fair Hospital course: 83-year-old female patient with history of multiple abdominal surgeries was admitted through emergency room with intractable nausea vomiting and abdominal pain --Intractable nausea vomiting /acute gastritis; IV Protonix, patient is nothing by mouth status, start soft diet as tolerated GI following, antiemetics --Abdominal pain; patient had multiple surgeries in the past Possible small bowel obstruction which was resolved, CT abdomen no acute abnormality noted Start clear liquids and advance as tolerated --Lactic acidosis May be due to vomiting, follow-up UA, no evidence of infection at this point --Hypertension; moderate control Continue current antihypertensives and when necessary medications --2 diabetes mellitus; Accu-Chek sliding scale coverage ADA diet --Hypokalemia; corrected --DVT prophylaxis; Lovenox --Full code --PTOT evaluation and treatment Disposition: DC-01 TO HOME OR SELFCARE Time spent for discharge: 32 min Core Measure Documentation - Palliative Care Palliative Care/ Comfort Measures: Not Applicable - Core Measures Any of the following diagnoses?: none Exam - Constitutional Vitals: Temp Pulse Resp BP Pulse Ox 98.8 F 81 18 121/56 94 04/08/19 07:50 04/08/19 07:50 04/08/19 07:50 04/08/19 07:50 04/08/19 07:50 General appearance: Present: no acute distress, well-nourished - EENT Eyes: Present: PERRL, EOM intact - Neck Neck: Present: supple, normal ROM - Respiratory Respiratory effort: normal Respiratory: bilateral: diminished, negative: rales, rhonchi, wheezing - Cardiovascular Rhythm: regular Heart Sounds: Present: S1 & S2 - Extremities Extremities: no ischemia, No edema - Abdominal General gastrointestinal: Present: soft, non-tender, non-distended, normal bowel sounds - Integumentary Integumentary: Present: clear, warm - Musculoskeletal Musculoskeletal: strength equal bilaterally, generalized weakness - Psychiatric Psychiatric: appropriate mood/affect, cooperative - Neurologic Neurologic: CNII-XII intact, moves all extremities Plan Activity: advance as tolerated, fall precautions Diet: advance as tolerated, other (soft diet and advance as tolerated) Additional Instructions: If you have recurrent abdominal pain associated with nausea or vomiting, possible transient small bowel obstruction, secondary to adhesions. Plan admit to see a private surgeon for further evaluation and management Follow up with: PRIMARY CAREMD [Primary Care Provider] - 7 Days TIFFANY CONNOR MD [Staff Physician] - 7 Days
[2019-04-08 14:34] VITALS: BP 125/62
[2019-04-09] MEDS ORDERED: PROTONIX PO SCH (10:00)
== END 2019-04-08 14:51 | disposition home or self-care (01) | DRG 389 ==
LOC: ED 16:44 → 2B-ACE 21:37 → OBSVTOIN 04-07 12:15
PROVIDERS: ADMIT Internal Medicine; ATTEND Internal Medicine
DX: K56.699 Other intestinal obstruction unspecified as to partial versus complete obstruction (principal); E87.2 Acidosis; K29.00 Acute gastritis without bleeding; E87.6 Hypokalemia; I10 Essential (primary) hypertension; E11.9 Type 2 diabetes mellitus without complications; Z96.651 Presence of right artificial knee joint; J44.9 Chronic obstructive pulmonary disease, unspecified; Z90.710 Acquired absence of both cervix and uterus; Z82.49 Family history of ischemic heart disease and other diseases of the circulatory system; Z79.51 Long term (current) use of inhaled steroids; Z79.899 Other long term (current) drug therapy; Z90.81 Acquired absence of spleen; Z79.84 Long term (current) use of oral hypoglycemic drugs
CPT/HCPCS: 36415; 74177; 80048; 80053; 81001; 82140; 82962; 83036; 83690; 85025; 93005; 93010; 96361; 96374; 96375; G0378; C9113; J1170; J1650; J1815; J2270; J2765; J3480; J7030; Q9967